=== PATIENT | female | born 1960 | race Caucasian/White ===

== ENCOUNTER 2019-11-08 11:30 | Inpatient (IN) | payer MEDICARE, OTHER ==
[2019-11-08 12:09] VITALS: BP 114/70
[2019-11-08] MEDS ORDERED: Maalox 30 mL Cup PO PRN (12:09)
[2019-11-08] MEDS ORDERED: Magnesium Hydroxide (MOM) 30 mL UDC PO PRN (12:09)
[2019-11-08] MEDS ORDERED: Dicyclomine 10 mg Cap PO PRN (12:40)
[2019-11-08] MEDS: Sulfamethoxazole/TMP 800/160mg Tab PO SCH (16:18)
--- NOTE | 2019-11-08 23:25 | Consultation ---
DATE OF CONSULTATION: 11/08/2019 INTERNAL MEDICINE CONSULTATION REASON FOR CONSULTATION: Medical management and clearance of the patient admitted on 515. HISTORY OF PRESENT ILLNESS: This is a 59-year-old female with history of COPD, arthritis, migraine headache, admitted from facility in [place]. The patient was cleared medically from [facility]. The patient also diagnosed with UTI. The patient denies any fever, shortness of breath, or chest pain at this time. PAST MEDICAL HISTORY: As mentioned in history of present illness. PAST SURGICAL HISTORY: The patient related multiple surgeries including brain surgery as a child, nasal surgery and right knee surgery. ALLERGIES: MORPHINE AND PROCHLORPERAZINE. MEDICATIONS: Aripiprazole, clonazepam, ibuprofen, lorazepam, multivitamin, Ambien, [place], and Imitrex. FAMILY HISTORY: Noncontributory. SOCIAL HISTORY: The patient is an avid smoker, half a pack to a pack. 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 She states that she does not have any children. REVIEW OF SYSTEMS: GENERAL: Complains of not feeling well. HEENT: No blurred vision or pain. LUNGS: No diagnosis of asthma. The patient with COPD. The patient is a chronic smoker. HEART: Denies hypertension or coronary artery disease. ABDOMEN: No nausea, vomiting, or pain. GENITOURINARY: The patient with increased frequency. NEUROLOGIC: No headaches, seizure, or syncope. PSYCHIATRIC: As stated above. PHYSICAL EXAMINATION: VITAL SIGNS: Blood pressure 114/70, respiration 18, pulse 80, and temperature 98.6. GENERAL: Disheveled female, mildly obese, appears older than stated age. NECK: Supple. No mass. LUNGS: Equal breath sounds, otherwise clear to auscultation. HEART: Regular rate and rhythm without appreciable murmur. ABDOMEN: Soft, globular. Positive bowel sounds. GENITOURINARY: This was offered, but the patient refused. EXTREMITIES: Positive abrasion bilateral lower extremity. NEUROLOGIC: The patient is awake, somewhat alert, please refer to Dr. Mckinney's dictation for assessment. Cranial nerve 1, the patient is able to smell alcohol swab. Cranial nerve 2, able to read a printed page. Cranial nerve 3, able to move eyeballs upward and outward. Cranial nerve 4, able to move eyeballs inward and downward. Cranial nerve 5 able to clench teeth, has normal sensation on forehead. Cranial nerve 6, able to move eyes laterally on both sides. Cranial nerve 7, able to move eyebrows upward on both sides. Cranial nerve 8, able to hear finger rubs on both sides. Cranial nerve 9, this was offered, but the patient refused. Cranial nerve 10, this was offered, but the patient refused. Cranial nerve 11, this was offered, but the patient refused. Cranial nerve 12, this was offered, but the patient refused. Motor and sensory are equal. Gait is not seen. LABORATORY DATA: UA showed 4+ bacteria, 15 wbc's. Sodium 139, potassium 3.7, BUN 21, creatinine 0.6, AST and ALT 17 and 15. WBC 6, hemoglobin 12, platelets 243. ASSESSMENT AND PLAN: Urinary tract infection, chronic obstructive pulmonary disease, osteoarthritis, degenerative joint disease, migraine headache, renal insufficiency, mild anemia, and obesity. We will start the patient on p.o. antibiotic for a short duration. Continue on bronchodilator treatment on as needed basis. Continue with adequate pain control as well as Imitrex for headaches. We will monitor hemoglobin and hematocrit. The patient to be placed on fall precaution. Psychiatry to manage the patient for psych issues. The patient to follow up with her regular physician upon discharge. [facility]# [id number]
[2019-11-09] MEDS: Multivitamin Tab PO SCH (08:26)
[2019-11-09] MEDS: Sulfamethoxazole/TMP 800/160mg Tab PO SCH ×2 (08:26→16:40)
--- NOTE | 2019-11-09 12:55 | Internal Medicine Prog Note ---
Internal Medicine Subjective - Subjective Patient seen and examined:: with staff, chart reviewed Patient is:: awake, verbal, interactive, in bed Per staff patient has:: no adverse event, no episodes of fall, tolerating meds Internal Medicine Objective - Physical Exam Vitals and I&O: Vital Signs Temp 97.9 F 11/09/19 06:04 Pulse 91 11/09/19 06:04 Resp 20 11/09/19 06:04 BP 104/74 11/09/19 06:04 Pulse Ox 95 11/09/19 06:04 Intake & Output 11/08/19 11/09/19 11/09/19 18:59 06:59 18:59 Intake Total 650 300 Balance 650 300 Weight (lbs) 78.925 kg Intake: Oral 650 300 Other: # Voids 1 # Bowel Movements 3 0 Weight Source Estimated Active Medications: Current Medications Acetaminophen (Tylenol) 650 mg PO Q4H PRN PRN Reason: Pain (Mild 1-3) Stop: 01/07/20 12:08 Hydrocodone Bitart/Acetaminophen ([place] 5mg/325mg) 1 tab PO Q6H PRN PRN Reason: Pain (Severe 7-10) Stop: 01/07/20 12:46 Al Hydrox/Mg Hydrox/Simethicone (Maalox) 30 ml PO Q4HR PRN PRN Reason: GI DISTRESS Stop: 01/07/20 12:08 Aripiprazole (Abilify) 10 mg PO DAILY [facility]; Protocol Stop: 01/08/20 08:59 Last Admin: 11/09/19 08:26 Dose: 10 mg Aspirin (Ecotrin) 81 mg PO DAILY [facility] Stop: 01/08/20 08:59 Last Admin: 11/09/19 08:26 Dose: 81 mg Baclofen (Lioresal) 10 mg PO TID PRN PRN Reason: Pain (Moderate 4-6) Stop: 01/07/20 13:59 Last Admin: 11/08/19 22:37 Dose: 10 mg Clonazepam (Klonopin) 1 mg PO BID PRN; Protocol PRN Reason: Agitation Stop: 01/07/20 16:59 Dicyclomine HCl (Bentyl) 20 mg PO TID PRN PRN Reason: Indigestion Stop: 11/12/19 12:39 Divalproex Sodium (Depakote Dr) 500 mg PO BID [facility]; Protocol Stop: 01/07/20 16:59 Last Admin: 11/09/19 08:26 Dose: 500 mg Gabapentin (Neurontin) 300 mg PO BID [facility] Stop: 01/07/20 16:59 Last Admin: 11/09/19 08:26 Dose: 300 mg Ibuprofen (Motrin) 400 mg PO Q4H PRN PRN Reason: Pain (Severe 7-10) Stop: 01/07/20 12:08 Loperamide HCl (Imodium) 2 mg PO Q4H PRN PRN Reason: Allergy Symptoms Stop: 11/13/19 16:00 Last Admin: 11/09/19 08:26 Dose: 2 mg Lorazepam (Ativan) 0.5 mg PO Q4HR PRN; Protocol PRN Reason: Anxiety Stop: 12/08/19 12:08 Last Admin: 11/09/19 08:26 Dose: 0.5 mg Magnesium Hydroxide (Milk Of Magnesia) 30 ml PO HS PRN PRN Reason: Constipation Mirtazapine (Remeron) 15 mg PO HS [facility]; Protocol Stop: 01/07/20 20:59 Last Admin: 11/08/19 21:19 Dose: 15 mg Multivitamins/Vitamin C (Theragran) 1 tab PO DAILY [facility] Stop: 01/08/20 08:59 Last Admin: 11/09/19 08:26 Dose: 1 tab Ondansetron HCl (Zofran Odt) 4 mg PO Q8H PRN PRN Reason: Nausea / Vomiting Stop: 11/12/19 12:51 Tramadol HCl (Ultram) 50 mg PO Q6HR PRN PRN Reason: Pain (Moderate 4-6) Stop: 11/11/19 12:56 Last Admin: 11/08/19 22:37 Dose: 50 mg Trazodone HCl (Desyrel) 150 mg PO HS [facility]; Protocol Stop: 01/07/20 20:59 Last Admin: 11/08/19 21:20 Dose: 150 mg Trimethoprim/Sulfamethoxazole (Bactrim Ds) 1 tab PO BID [facility] Stop: 11/13/19 16:59 Last Admin: 11/09/19 08:26 Dose: 1 tab Zolpidem Tartrate (Ambien) 5 mg PO HS PRN PRN Reason: Insomnia Stop: 01/07/20 12:08 General: obese, appears older HEENT: NC/AT, PERRLA Neck: Supple, No JVD, No thyromegaly Lungs: CTAB Cardiovascular: RRR, Normal S1, Normal S2, without murmur Abdomen: soft, non-tender, globular, positive bowel sound Extremities: excoriation Neurological: no change Internal Medicine Assmt/Plan - Assessment Assessment: ASSESSMENT AND PLAN: Urinary tract infection, chronic obstructive pulmonary disease, osteoarthritis, degenerative joint disease, migraine headache, renal insufficiency, mild anemia, and obesity. - Plan Plan: PLAN: We will start the patient on p.o. antibiotic for a short duration. Continue on bronchodilator treatment on as needed basis. Continue with adequate pain control as well as Imitrex for headaches. We will monitor hemoglobin and hematocrit. The patient to be placed on fall precaution. Psychiatry to manage the patient for psych issues.
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
[2019-11-10] MEDS: Sulfamethoxazole/TMP 800/160mg Tab PO SCH ×2 (08:49→17:31)
[2019-11-10] MEDS: Multivitamin Tab PO SCH (08:49)
--- NOTE | 2019-11-10 12:33 | Internal Medicine Prog Note ---
Internal Medicine Subjective - Subjective Patient seen and examined:: with staff, chart reviewed Patient is:: awake, verbal, interactive, in bed Per staff patient has:: no adverse event, no episodes of fall, tolerating meds Internal Medicine Objective - Physical Exam Vitals and I&O: Vital Signs Temp 0 F 11/10/19 05:52 Pulse 77 11/09/19 21:39 Resp 20 11/09/19 21:39 BP 115/72 11/09/19 21:39 Pulse Ox 96 11/09/19 21:39 Intake & Output 11/09/19 11/10/19 11/10/19 18:59 06:59 18:59 Intake Total 960 Balance 960 Intake: Oral 840 Other 120 Other: # Voids 3 3 # Bowel Movements 0 0 Active Medications: Current Medications Acetaminophen (Tylenol) 650 mg PO Q4H PRN PRN Reason: Pain (Mild 1-3) Stop: 01/07/20 12:08 Hydrocodone Bitart/Acetaminophen ([place] 5mg/325mg) 1 tab PO Q6H PRN PRN Reason: Pain (Severe 7-10) Stop: 01/07/20 12:46 Al Hydrox/Mg Hydrox/Simethicone (Maalox) 30 ml PO Q4HR PRN PRN Reason: GI DISTRESS Stop: 01/07/20 12:08 Aripiprazole (Abilify) 15 mg PO DAILY [facility]; Protocol Stop: 01/09/20 08:59 Last Admin: 11/10/19 08:49 Dose: 15 mg Aspirin (Ecotrin) 81 mg PO DAILY [facility] Stop: 01/08/20 08:59 Last Admin: 11/10/19 08:49 Dose: 81 mg Baclofen (Lioresal) 10 mg PO TID PRN PRN Reason: Pain (Moderate 4-6) Stop: 01/07/20 13:59 Last Admin: 11/08/19 22:37 Dose: 10 mg Clonazepam (Klonopin) 1 mg PO BID PR[facility]; Protocol PRN Reason: Agitation Stop: 01/07/20 16:59 Dicyclomine HCl (Bentyl) 20 mg PO TID PRN PRN Reason: Indigestion Stop: 11/12/19 12:39 Divalproex Sodium (Depakote Dr) 500 mg PO BID [facility]; Protocol Stop: 01/07/20 16:59 Last Admin: 11/10/19 08:49 Dose: 500 mg Gabapentin (Neurontin) 300 mg PO BID [facility] Stop: 01/07/20 16:59 Last Admin: 11/10/19 08:49 Dose: 300 mg Ibuprofen (Motrin) 400 mg PO Q4H PRN PRN Reason: Pain (Severe 7-10) Stop: 01/07/20 12:08 Loperamide HCl (Imodium) 2 mg PO Q4H PRN PRN Reason: Allergy Symptoms Stop: 11/13/19 16:00 Last Admin: 11/09/19 08:26 Dose: 2 mg Lorazepam (Ativan) 0.5 mg PO Q4HR PRN; Protocol PRN Reason: Anxiety Stop: 12/08/19 12:08 Last Admin: 11/09/19 08:26 Dose: 0.5 mg Magnesium Hydroxide (Milk Of Magnesia) 30 ml PO HS PRN PRN Reason: Constipation Mirtazapine (Remeron) 15 mg PO HS [facility]; Protocol Stop: 01/07/20 20:59 Last Admin: 11/09/19 21:45 Dose: Not Given Multivitamins/Vitamin C (Theragran) 1 tab PO DAILY [facility] Stop: 01/08/20 08:59 Last Admin: 11/10/19 08:49 Dose: 1 tab Ondansetron HCl (Zofran Odt) 4 mg PO Q8H PRN PRN Reason: Nausea / Vomiting Stop: 11/12/19 12:51 Tramadol HCl (Ultram) 50 mg PO Q6HR PRN PRN Reason: Pain (Moderate 4-6) Stop: 11/11/19 12:56 Last Admin: 11/08/19 22:37 Dose: 50 mg Trazodone HCl (Desyrel) 150 mg PO HS [facility]; Protocol Stop: 01/07/20 20:59 Last Admin: 11/09/19 21:45 Dose: Not Given Trimethoprim/Sulfamethoxazole (Bactrim Ds) 1 tab PO BID [facility] Stop: 11/13/19 16:59 Last Admin: 11/10/19 08:49 Dose: 1 tab Zolpidem Tartrate (Ambien) 5 mg PO HS PRN PRN Reason: Insomnia Stop: 01/07/20 12:08 General: obese, appears older HEENT: NC/AT, PERRLA Neck: Supple, No JVD, No thyromegaly Lungs: CTAB Cardiovascular: RRR, Normal S1, Normal S2, without murmur Abdomen: soft, non-tender, globular, positive bowel sound Extremities: excoriation Neurological: no change Internal Medicine Assmt/Plan - Assessment Assessment: ASSESSMENT AND PLAN: Urinary tract infection, chronic obstructive pulmonary disease, osteoarthritis, degenerative joint disease, migraine headache, renal insufficiency, mild anemia, and obesity. - Plan Plan: PLAN: We will start the patient on p.o. antibiotic for a short duration. Continue on bronchodilator treatment on as needed basis. Continue with adequate pain control as well as Imitrex for headaches. We will monitor hemoglobin and hematocrit. The patient to be placed on fall precaution. Psychiatry to manage the patient for psych issues.
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
[2019-11-11] MEDS: Multivitamin Tab PO SCH (08:42)
[2019-11-11] MEDS: Sulfamethoxazole/TMP 800/160mg Tab PO SCH ×2 (08:42→16:34)
--- NOTE | 2019-11-11 12:56 | Internal Medicine Prog Note ---
Internal Medicine Subjective - Subjective Patient seen and examined:: with staff, chart reviewed Patient is:: awake, verbal, interactive, in bed Per staff patient has:: no adverse event, no episodes of fall, tolerating meds Internal Medicine Objective - Physical Exam Vitals and I&O: Vital Signs Temp 97.6 F 11/11/19 05:28 Pulse 97 11/11/19 05:28 Resp 18 11/11/19 05:28 BP 120/79 11/11/19 05:28 Pulse Ox 99 11/11/19 05:28 Intake & Output 11/10/19 11/11/19 11/11/19 18:59 06:59 18:59 Intake Total 120 Balance 120 Intake: Oral 120 Other: # Voids 2 3 # Bowel Movements 0 0 Active Medications: Current Medications Acetaminophen (Tylenol) 650 mg PO Q4H PRN PRN Reason: Pain (Mild 1-3) Stop: 01/07/20 12:08 Hydrocodone Bitart/Acetaminophen ([place] 5mg/325mg) 1 tab PO Q6H PRN PRN Reason: Pain (Severe 7-10) Stop: 01/07/20 12:46 Al Hydrox/Mg Hydrox/Simethicone (Maalox) 30 ml PO Q4HR PRN PRN Reason: GI DISTRESS Stop: 01/07/20 12:08 Aripiprazole (Abilify) 15 mg PO DAILY [facility]; Protocol Stop: 01/09/20 08:59 Last Admin: 11/11/19 08:42 Dose: 15 mg Aspirin (Ecotrin) 81 mg PO DAILY [facility] Stop: 01/08/20 08:59 Last Admin: 11/11/19 08:42 Dose: 81 mg Baclofen (Lioresal) 10 mg PO TID PRN PRN Reason: Pain (Moderate 4-6) Stop: 01/07/20 13:59 Last Admin: 11/08/19 22:37 Dose: 10 mg Clonazepam (Klonopin) 1 mg PO BID [facility]; Protocol PRN Reason: Agitation Stop: 01/07/20 16:59 Dicyclomine HCl (Bentyl) 20 mg PO TID PRN PRN Reason: Indigestion Stop: 11/12/19 12:39 Divalproex Sodium (Depakote Dr) 500 mg PO BID [facility]; Protocol Stop: 01/07/20 16:59 Last Admin: 04/15/20 08:42 Dose: 500 mg Gabapentin (Neurontin) 300 mg PO BID [facility] Stop: 01/07/20 16:59 Last Admin: 11/11/19 08:42 Dose: 300 mg Ibuprofen (Motrin) 400 mg PO Q4H PRN PRN Reason: Pain (Severe 7-10) Stop: 01/07/20 12:08 Loperamide HCl (Imodium) 2 mg PO Q4H PRN PRN Reason: Allergy Symptoms Stop: 11/13/19 16:00 Last Admin: 11/09/19 08:26 Dose: 2 mg Lorazepam (Ativan) 0.5 mg PO Q4HR PRN; Protocol PRN Reason: Anxiety Stop: 12/08/19 12:08 Last Admin: 11/09/19 08:26 Dose: 0.5 mg Magnesium Hydroxide (Milk Of Magnesia) 30 ml PO HS PRN PRN Reason: Constipation Mirtazapine (Remeron) 15 mg PO HS [facility]; Protocol Stop: 01/07/20 20:59 Last Admin: 11/10/19 20:54 Dose: 15 mg Multivitamins/Vitamin C (Theragran) 1 tab PO DAILY [facility] Stop: 01/08/20 08:59 Last Admin: 11/11/19 08:42 Dose: 1 tab Ondansetron HCl (Zofran Odt) 4 mg PO Q8H PRN PRN Reason: Nausea / Vomiting Stop: 11/12/19 12:51 Tramadol HCl (Ultram) 50 mg PO Q6HR PRN PRN Reason: Pain (Moderate 4-6) Stop: 11/11/19 12:56 Last Admin: 11/08/19 22:37 Dose: 50 mg Trazodone HCl (Desyrel) 150 mg PO HS [facility]; Protocol Stop: 01/07/20 20:59 Last Admin: 11/10/19 20:54 Dose: 150 mg Trimethoprim/Sulfamethoxazole (Bactrim Ds) 1 tab PO BID [facility] Stop: 11/13/19 16:59 Last Admin: 11/11/19 08:42 Dose: 1 tab Zolpidem Tartrate (Ambien) 5 mg PO HS PRN PRN Reason: Insomnia Stop: 01/07/20 12:08 General: obese, appears older HEENT: NC/AT, PERRLA Neck: Supple, No JVD, No thyromegaly Lungs: CTAB Cardiovascular: RRR, Normal S1, Normal S2, without murmur Abdomen: soft, non-tender, globular, positive bowel sound Extremities: excoriation Neurological: no change Internal Medicine Assmt/Plan - Assessment Assessment: ASSESSMENT AND PLAN: Urinary tract infection, chronic obstructive pulmonary disease, osteoarthritis, degenerative joint disease, migraine headache, renal insufficiency, mild anemia, and obesity. - Plan Plan: PLAN: We will start the patient on p.o. antibiotic for a short duration. Continue on bronchodilator treatment on as needed basis. Continue with adequate pain control as well as Imitrex for headaches. We will monitor hemoglobin and hematocrit. The patient to be placed on fall precaution. Psychiatry to manage the patient for psych issues.
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
[2019-11-12] MEDS: Multivitamin Tab PO SCH (08:21)
[2019-11-12] MEDS: Sulfamethoxazole/TMP 800/160mg Tab PO SCH ×2 (08:21→17:06)
--- NOTE | 2019-11-12 13:05 | Progress Notes ---
DATE: 11/12/2019 SUBJECTIVE: A 59-year-old female, slept for about 8 hours, selectively mute, withdrawn, depressed, still believing she is , not telling me her age. The patient was apparently off of medications, still believes that she has a mansion, millions of dollars, [place] nodding when I ask her these questions, nodding yes when I ask if she is . Medications were reviewed. Labs were reviewed. Vitals were reviewed. Blood pressure 112/67, pulse of 81. Evaluated for any medication side effects, none noted at this time. No EPS, no akathisia, no oversedation. MENTAL STATUS EXAMINATION: Stated age, staring blankly, depressed appearing down still grandiose. DIAGNOSIS: Concerns for schizophrenia. PLAN: We will continue inpatient monitoring. We will continue to adjust and titrate medications. I will be increasing her dosing of Abilify slowly. [facility]# [id number]
--- NOTE | 2019-11-12 13:07 | Internal Medicine Prog Note ---
Internal Medicine Subjective - Subjective Patient seen and examined:: with staff, chart reviewed Patient is:: awake, verbal, interactive, in bed Per staff patient has:: no adverse event, no episodes of fall, tolerating meds Internal Medicine Objective - Physical Exam Vitals and I&O: Vital Signs Temp 98.3 F 11/12/19 06:04 Pulse 66 11/12/19 06:04 Resp 17 11/12/19 08:00 BP 122/82 11/12/19 06:04 Pulse Ox 96 11/12/19 06:04 Intake & Output 11/11/19 11/12/19 11/12/19 18:59 06:59 18:59 Intake Total 800 240 Balance 800 240 Intake: Oral 800 240 Other: # Voids 3 2 # Bowel Movements 0 0 Active Medications: Current Medications Acetaminophen (Tylenol) 650 mg PO Q4H PRN PRN Reason: Pain (Mild 1-3) Stop: 01/07/20 12:08 Hydrocodone Bitart/Acetaminophen ([place] 5mg/325mg) 1 tab PO Q6H PRN PRN Reason: Pain (Severe 7-10) Stop: 01/07/20 12:46 Al Hydrox/Mg Hydrox/Simethicone (Maalox) 30 ml PO Q4HR PRN PRN Reason: GI DISTRESS Stop: 01/07/20 12:08 Aripiprazole (Abilify) 15 mg PO DAILY [facility]; Protocol Stop: 01/09/20 08:59 Last Admin: 11/12/19 08:21 Dose: 15 mg Aspirin (Ecotrin) 81 mg PO DAILY [facility] Stop: 01/08/20 08:59 Last Admin: 11/12/19 08:21 Dose: 81 mg Baclofen (Lioresal) 10 mg PO TID PRN PRN Reason: Pain (Moderate 4-6) Stop: 01/07/20 13:59 Last Admin: 11/08/19 22:37 Dose: 10 mg Clonazepam (Klonopin) 1 mg PO BID PRN; Protocol PRN Reason: Agitation Stop: 01/07/20 16:59 Divalproex Sodium (Depakote Dr) 500 mg PO BID [facility]; Protocol Stop: 01/07/20 16:59 Last Admin: 11/12/19 08:21 Dose: 500 mg Gabapentin (Neurontin) 300 mg PO BID [facility] Stop: 01/07/20 16:59 Last Admin: 11/12/19 08:21 Dose: 300 mg Ibuprofen (Motrin) 400 mg PO Q4H PRN PRN Reason: Pain (Severe 7-10) Stop: 01/07/20 12:08 Loperamide HCl (Imodium) 2 mg PO Q4H PRN PRN Reason: Allergy Symptoms Stop: 11/13/19 16:00 Last Admin: 11/09/19 08:26 Dose: 2 mg Lorazepam (Ativan) 0.5 mg PO Q4HR PRN; Protocol PRN Reason: Anxiety Stop: 12/08/19 12:08 Last Admin: 11/09/19 08:26 Dose: 0.5 mg Magnesium Hydroxide (Milk Of Magnesia) 30 ml PO HS PRN PRN Reason: Constipation Mirtazapine (Remeron) 15 mg PO HS [facility]; Protocol Stop: 01/07/20 20:59 Last Admin: 11/10/19 20:54 Dose: 15 mg Multivitamins/Vitamin C (Theragran) 1 tab PO DAILY [facility] Stop: 01/08/20 08:59 Last Admin: 11/12/19 08:21 Dose: 1 tab Trazodone HCl (Desyrel) 150 mg PO HS [facility]; Protocol Stop: 01/07/20 20:59 Last Admin: 11/10/19 20:54 Dose: 150 mg Trimethoprim/Sulfamethoxazole (Bactrim Ds) 1 tab PO BID [facility] Stop: 11/13/19 16:59 Last Admin: 11/12/19 08:21 Dose: 1 tab Zolpidem Tartrate (Ambien) 5 mg PO HS PRN PRN Reason: Insomnia Stop: 01/07/20 12:08 General: obese, appears older HEENT: NC/AT, PERRLA Neck: Supple, No JVD, No thyromegaly Lungs: CTAB Cardiovascular: RRR, Normal S1, Normal S2, without murmur Abdomen: soft, non-tender, globular, positive bowel sound Extremities: excoriation Neurological: no change Internal Medicine Assmt/Plan - Assessment Assessment: ASSESSMENT AND PLAN: Urinary tract infection, chronic obstructive pulmonary disease, osteoarthritis, degenerative joint disease, migraine headache, renal insufficiency, mild anemia, and obesity. - Plan Plan: PLAN: We will start the patient on p.o. antibiotic for a short duration. Continue on bronchodilator treatment on as needed basis. Continue with adequate pain control as well as Imitrex for headaches. We will monitor hemoglobin and hematocrit. The patient to be placed on fall precaution. Psychiatry to manage the patient for psych issues.
[2019-11-13] MEDS: Multivitamin Tab PO SCH (09:06)
[2019-11-13] MEDS: Sulfamethoxazole/TMP 800/160mg Tab PO SCH (09:06)
--- NOTE | 2019-11-13 13:09 | Internal Medicine Prog Note ---
Internal Medicine Subjective - Subjective Patient seen and examined:: with staff, chart reviewed Patient is:: awake, verbal, interactive, in bed Per staff patient has:: no adverse event, no episodes of fall, tolerating meds Internal Medicine Objective - Physical Exam Vitals and I&O: Vital Signs Temp 98.6 F 11/13/19 05:54 Pulse 75 11/13/19 05:54 Resp 17 11/13/19 08:00 BP 110/61 11/13/19 05:54 Pulse Ox 98 11/13/19 05:54 Intake & Output 11/12/19 11/13/19 11/13/19 18:59 06:59 18:59 Intake Total 660 240 Balance 660 240 Intake: Oral 660 240 Other: # Voids 3 2 # Bowel Movements 0 0 Active Medications: Current Medications Acetaminophen (Tylenol) 650 mg PO Q4H PRN PRN Reason: Pain (Mild 1-3) Stop: 01/07/20 12:08 Hydrocodone Bitart/Acetaminophen ([place] 5mg/325mg) 1 tab PO Q6H PRN PRN Reason: Pain (Severe 7-10) Stop: 01/07/20 12:46 Al Hydrox/Mg Hydrox/Simethicone (Maalox) 30 ml PO Q4HR PRN PRN Reason: GI DISTRESS Stop: 01/07/20 12:08 Aripiprazole (Abilify) 15 mg PO DAILY [facility]; Protocol Stop: 01/09/20 08:59 Last Admin: 11/13/19 09:06 Dose: 15 mg Aspirin (Ecotrin) 81 mg PO DAILY [facility] Stop: 01/08/20 08:59 Last Admin: 11/13/19 09:06 Dose: 81 mg Baclofen (Lioresal) 10 mg PO TID PRN PRN Reason: Pain (Moderate 4-6) Stop: 01/07/20 13:59 Last Admin: 11/08/19 22:37 Dose: 10 mg Clonazepam (Klonopin) 1 mg PO BID PRN; Protocol PRN Reason: Agitation Stop: 01/07/20 16:59 Divalproex Sodium (Depakote Dr) 500 mg PO BID [facility]; Protocol Stop: 01/07/20 16:59 Last Admin: 11/13/19 09:06 Dose: 500 mg Gabapentin (Neurontin) 300 mg PO BID [facility] Stop: 01/07/20 16:59 Last Admin: 11/13/19 09:06 Dose: 300 mg Ibuprofen (Motrin) 400 mg PO Q4H PRN PRN Reason: Pain (Severe 7-10) Stop: 01/07/20 12:08 Loperamide HCl (Imodium) 2 mg PO Q4H PRN PRN Reason: Allergy Symptoms Stop: 11/13/19 16:00 Last Admin: 11/09/19 08:26 Dose: 2 mg Lorazepam (Ativan) 0.5 mg PO Q4HR PRN; Protocol PRN Reason: Anxiety Stop: 12/08/19 12:08 Last Admin: 11/09/19 08:26 Dose: 0.5 mg Magnesium Hydroxide (Milk Of Magnesia) 30 ml PO HS PRN PRN Reason: Constipation Mirtazapine (Remeron) 15 mg PO HS [facility]; Protocol Stop: 01/07/20 20:59 Last Admin: 11/12/19 21:45 Dose: 15 mg Multivitamins/Vitamin C (Theragran) 1 tab PO DAILY [facility] Stop: 01/08/20 08:59 Last Admin: 11/13/19 09:06 Dose: 1 tab Trazodone HCl (Desyrel) 150 mg PO HS [facility]; Protocol Stop: 01/07/20 20:59 Last Admin: 11/12/19 21:45 Dose: 150 mg Trimethoprim/Sulfamethoxazole (Bactrim Ds) 1 tab PO BID [facility] Stop: 11/13/19 16:59 Last Admin: 11/13/19 09:06 Dose: 1 tab Zolpidem Tartrate (Ambien) 5 mg PO HS PRN PRN Reason: Insomnia Stop: 01/07/20 12:08 General: obese, appears older HEENT: NC/AT, PERRLA Neck: Supple, No JVD, No thyromegaly Lungs: CTAB Cardiovascular: RRR, Normal S1, Normal S2, without murmur Abdomen: soft, non-tender, globular, positive bowel sound Extremities: excoriation Neurological: no change Internal Medicine Assmt/Plan - Assessment Assessment: ASSESSMENT AND PLAN: Urinary tract infection, chronic obstructive pulmonary disease, osteoarthritis, degenerative joint disease, migraine headache, renal insufficiency, mild anemia, and obesity. - Plan Plan: PLAN: We will start the patient on p.o. antibiotic for a short duration. Continue on bronchodilator treatment on as needed basis. Continue with adequate pain control as well as Imitrex for headaches. We will monitor hemoglobin and hematocrit. The patient to be placed on fall precaution. Psychiatry to manage the patient for psych issues. Nutritional Asmnt/Malnutr-PDOC - Dietary Evaluation Malnutrition Findings (Please click <Entered> for more info): Nutritional Asmnt/Malnutrition Start: 11/12/19 16: 37 Text: Status: Complete Freq: Protocol: Document 11/12/19 16:38 GORDON (Rec: 11/12/19 16:40 GORDON [id number]) Nutritional Asmnt/Malnutrition Patient General Information Nutritional Screening Moderate Risk Diagnosis Psychosis Pertinent Medical Hx/Surgical Hx COPD, Arthritis, Migraine Headaches Subjective Information Pt is a 57-year-old male admitted on 07/19 d/t psychosis with grandiosities. Pt is eating an estimated 56% of meals since admit date (x3 days) Per Meal/Nutrition Activity Record. Pt has noted refusal of some meals, nurse stated pt refused breakfast this morning and seems very depressed. Dietary is currently providing an estimated 1700 kcals and 100 gm Pro, per Pt PO intake this is providing an estimated 950 kcals and 56gm Pro to meet 86 % kcal and 100+% Pro needs- adequate. Visited pt today, asked how her appetite was .Pt would not speak, only nodded no when I asked if she was hungry and if I could get her something to eat. Will continue to monitor PO intake. Anthropometrics HT: 5 FT WT: 174 LB (79.09 kg) ABW: 119 LB (53.86 kg) BMI: 34.02 (Obese) GI/ Skin Integrity GI: WNL, Soft, Non-tender BM: 11/07 x3 I/O: 1040/Not Noted Skin: WNL, Intact Demetrio: 20 Diet Order: Cardiac, Chopped Estimated Energy Needs: ( Geriatric, ABW) 6712-1244 kcals (20-25 kcals/ kg) 40-55g Pro (0.8-1.0 g/kg) 9016-0228 ml (20-25 ml/kg) Current Diet Order/ Nutrition Support Cardiac, Chopped Pertinent Medications Maalox (PRN), Imodium (PRN), MOM (PRN), Theragran Pertinent Labs 4/11: Glucose 106, BUN/Cr 21/0 .67, Pro Time 12.4, INR 1.1 Nutritional Hx/Data Height 1.52 m Height (Calculated Centimeters) 152.4 Current Weight (lbs) 78.925 kg Weight (Calculated Kilograms) 78.9 Weight (Calculated Grams) 79585.1 [place] Body Weight 100 LB (45.45 kg) % [place] Body Weight 174 Body Mass Index (BMI) 34.0 Weight Status Obese GI Symptoms Last BM 11/07 x3 Skin Integrity/Comment: Skin: WNL, Intact Demetrio: 20 Estimated Nutritional Goals BEE in Kcals: Adj wt of IBW Calories/Kcals/Kg 20-25 Kcals Calculated 4373-8675 Protein: Adj wt of IBW Protein g/k.8-1.0 Protein Calculated 40-55 Fluid: ml 7407-8310 ml (20-25 ml/kg) Nutritional Problem 1. Problem Problem Obesity Etiology r/t consistent energy overconsumption Signs/Symptoms: aeb BMI <30 (34.02). Malnutrition Related to Morbid Obesity Malnutrition related to morbid obesity No Intervention/Recommendation Comments Continue Cardiac, Chopped diet as tolerated. Expected Outcomes/Goals Expected Outcomes/Goals 1.PO intake meet 75% of estimated nutritional needs. 2.Monitor PO intake, wt, nutrition related labs, and skin integrity. 3.F/U as moderate risk in 3-5 days, 11/14-11/16.
--- NOTE | 2019-11-13 14:56 | Progress Notes ---
DATE: 11/13/2019 SUBJECTIVE: A 59-year-old female, currently in the hospital unkempt, mostly withdrawn, keeps to self, ongoing delusions, still stating that she is , that she has multiple mansions, a lot of money, very depressed appearing, ongoing melancholy, psychotic symptoms. I cannot convince her that she is not given her age of 59. Poor reality testing, unrealistic expectations about her discharge plan, stating that she is going to go live in mansions. Nursing notes are reviewed. Medications were reviewed. Labs were reviewed. Vitals were reviewed, discussed with nursing staff, no medication side effects noted. MENTAL STATUS EXAMINATION: Stated age. Fair eye contact. Mood "okay." Affect flat. Thought processes were tangential. Ongoing delusions, perceptual disturbances. Diagnosis of bipolar versus schizophrenia. PLAN: We will continue to monitor incrementally, increase her dosing of antipsychotic medications. Ongoing symptoms, severe psychotic symptoms. [facility]# [id number]
[2019-11-14] MEDS: Multivitamin Tab PO SCH (10:06)
--- NOTE | 2019-11-14 11:16 | Internal Medicine Prog Note ---
Internal Medicine Subjective - Subjective Patient seen and examined:: with staff, chart reviewed Patient is:: awake, verbal, interactive, in bed Per staff patient has:: no adverse event, no episodes of fall, tolerating meds Internal Medicine Objective - Physical Exam Vitals and I&O: Vital Signs Temp 97.3 F 11/13/19 16:27 Pulse 74 11/13/19 16:27 Resp 17 11/14/19 08:00 BP 95/63 11/13/19 16:27 Pulse Ox 95 11/13/19 16:27 Intake & Output 11/13/19 11/14/19 11/14/19 18:59 06:59 18:59 Intake Total 360 Balance 360 Intake: Oral 360 Other: # Voids 2 # Bowel Movements 0 Active Medications: Current Medications Acetaminophen (Tylenol) 650 mg PO Q4H PRN PRN Reason: Pain (Mild 1-3) Stop: 01/07/20 12:08 Hydrocodone Bitart/Acetaminophen ([place] 5mg/325mg) 1 tab PO Q6H PRN PRN Reason: Pain (Severe 7-10) Stop: 01/07/20 12:46 Al Hydrox/Mg Hydrox/Simethicone (Maalox) 30 ml PO Q4HR PRN PRN Reason: GI DISTRESS Stop: 01/07/20 12:08 Aripiprazole (Abilify) 15 mg PO DAILY [facility]; Protocol Stop: 01/09/20 08:59 Last Admin: 11/14/19 10:05 Dose: 15 mg Aspirin (Ecotrin) 81 mg PO DAILY [facility] Stop: 01/08/20 08:59 Last Admin: 11/14/19 10:05 Dose: 81 mg Baclofen (Lioresal) 10 mg PO TID PRN PRN Reason: Pain (Moderate 4-6) Stop: 01/07/20 13:59 Last Admin: 11/08/19 22:37 Dose: 10 mg Clonazepam (Klonopin) 1 mg PO BID PRN; Protocol PRN Reason: Agitation Stop: 01/07/20 16:59 Divalproex Sodium (Depakote Dr) 500 mg PO BID [facility]; Protocol Stop: 01/07/20 16:59 Last Admin: 11/14/19 10:05 Dose: 500 mg Gabapentin (Neurontin) 300 mg PO BID [facility] Stop: 01/07/20 16:59 Last Admin: 04/18/20 10:05 Dose: 300 mg Ibuprofen (Motrin) 400 mg PO Q4H PRN PRN Reason: Pain (Severe 7-10) Stop: 01/07/20 12:08 Lorazepam (Ativan) 0.5 mg PO Q4HR PRN; Protocol PRN Reason: Anxiety Stop: 12/08/19 12:08 Last Admin: 11/09/19 08:26 Dose: 0.5 mg Magnesium Hydroxide (Milk Of Magnesia) 30 ml PO HS PRN PRN Reason: Constipation Mirtazapine (Remeron) 15 mg PO HS [facility]; Protocol Stop: 01/07/20 20:59 Last Admin: 11/13/19 20:45 Dose: 15 mg Multivitamins/Vitamin C (Theragran) 1 tab PO DAILY [facility] Stop: 01/08/20 08:59 Last Admin: 11/14/19 10:06 Dose: 1 tab Trazodone HCl (Desyrel) 150 mg PO HS [facility]; Protocol Stop: 01/07/20 20:59 Last Admin: 11/13/19 20:45 Dose: 150 mg Zolpidem Tartrate (Ambien) 5 mg PO HS PRN PRN Reason: Insomnia Stop: 01/07/20 12:08 General: obese, appears older HEENT: NC/AT, PERRLA Neck: Supple, No JVD, No thyromegaly Lungs: CTAB Cardiovascular: RRR, Normal S1, Normal S2, without murmur Abdomen: soft, non-tender, globular, positive bowel sound Extremities: excoriation Neurological: no change Internal Medicine Assmt/Plan - Assessment Assessment: ASSESSMENT AND PLAN: Urinary tract infection, chronic obstructive pulmonary disease, osteoarthritis, degenerative joint disease, migraine headache, renal insufficiency, mild anemia, and obesity. - Plan Plan: PLAN: We will start the patient on p.o. antibiotic for a short duration. Continue on bronchodilator treatment on as needed basis. Continue with adequate pain control as well as Imitrex for headaches. We will monitor hemoglobin and hematocrit. The patient to be placed on fall precaution. Psychiatry to manage the patient for psych issues. Nutritional Asmnt/Malnutr-PDOC - Dietary Evaluation Malnutrition Findings (Please click <Entered> for more info): Nutritional Asmnt/Malnutrition Start: 11/12/19 16: 37 Text: Status: Complete Freq: Protocol: Document 11/12/19 16:38 GORDON (Rec: 11/12/19 16:40 GORDON [email or web address] [id number]) Nutritional Asmnt/Malnutrition Patient General Information Nutritional Screening Moderate Risk Diagnosis Psychosis Pertinent Medical Hx/Surgical Hx COPD, Arthritis, Migraine Headaches Subjective Information Pt is a 57-year-old male admitted on 07/19 d/t psychosis with grandiosities. Pt is eating an estimated 56% of meals since admit date (x3 days) Per Meal/Nutrition Activity Record. Pt has noted refusal of some meals, nurse stated pt refused breakfast this morning and seems very depressed. Dietary is currently providing an estimated 1700 kcals and 100 gm Pro, per Pt PO intake this is providing an estimated 950 kcals and 56gm Pro to meet 86 % kcal and 100+% Pro needs- adequate. Visited pt today, asked how her appetite was .Pt would not speak, only nodded no when I asked if she was hungry and if I could get her something to eat. Will continue to monitor PO intake. Anthropometrics HT: 5 FT WT: 174 LB (79.09 kg) ABW: 119 LB (53.86 kg) BMI: 34.02 (Obese) GI/ Skin Integrity GI: WNL, Soft, Non-tender BM: 11/07 x3 I/O: 1040/Not Noted Skin: WNL, Intact Demetrio: 20 Diet Order: Cardiac, Chopped Estimated Energy Needs: ( Geriatric, ABW) 5415-5171 kcals (20-25 kcals/ kg) 40-55g Pro (0.8-1.0 g/kg) 6917-8917 ml (20-25 ml/kg) Current Diet Order/ Nutrition Support Cardiac, Chopped Pertinent Medications Maalox (PRN), Imodium (PRN), MOM (PRN), Theragran Pertinent Labs 11/06: Glucose 106, BUN/Cr 21/0 .67, Pro Time 12.4, INR 1.1 Nutritional Hx/Data Height 1.52 m Height (Calculated Centimeters) 152.4 Current Weight (lbs) 78.925 kg Weight (Calculated Kilograms) 78.9 Weight (Calculated Grams) 61277.1 [place] Body Weight 100 LB (45.45 kg) % [place] Body Weight 174 Body Mass Index (BMI) 34.0 Weight Status Obese GI Symptoms Last BM 11/07 x3 Skin Integrity/Comment: Skin: WNL, Intact Demetrio: 20 Estimated Nutritional Goals BEE in Kcals: Adj wt of IBW Calories/Kcals/Kg 20-25 Kcals Calculated 0854-8749 Protein: Adj wt of IBW Protein g/k.8-1.0 Protein Calculated 40-55 Fluid: ml 7749-4338 ml (20-25 ml/kg) Nutritional Problem 1. Problem Problem Obesity Etiology r/t consistent energy overconsumption Signs/Symptoms: aeb BMI <30 (34.02). Malnutrition Related to Morbid Obesity Malnutrition related to morbid obesity No Intervention/Recommendation Comments Continue Cardiac, Chopped diet as tolerated. Expected Outcomes/Goals Expected Outcomes/Goals 1.PO intake meet 75% of estimated nutritional needs. 2.Monitor PO intake, wt, nutrition related labs, and skin integrity. 3.F/U as moderate risk in 3-5 days, 11/14-11/16.
--- NOTE | 2019-11-14 18:37 | Progress Notes ---
DATE: 11/14/2019 REASON FOR HOSPITALIZATION: Psychosis, grandiose and recent diagnosis of UTI. Medication reconciliation reviewed, Depakote, gabapentin, mirtazapine. SUBJECTIVE: Nursing staff reported the patient has been isolating, withdrawn. Today on [id number] evaluation, in her room bed with monotone, depressed, ongoing melancholic and internally preoccupied. ASSESSMENT AND PLAN: The patient with still ongoing symptoms and recent adjustments in medications. Continue to reach steady state. We will continue adjusting, monitoring, recent adjustments of __. JOB# [id number]
[2019-11-15] MEDS: Multivitamin Tab PO SCH (09:28)
--- NOTE | 2019-11-15 12:08 | Internal Medicine Prog Note ---
Internal Medicine Subjective - Subjective Patient seen and examined:: with staff, chart reviewed Patient is:: awake, verbal, interactive, in bed Per staff patient has:: no adverse event, no episodes of fall, tolerating meds Internal Medicine Objective - Physical Exam Vitals and I&O: Vital Signs Temp 97.3 F 11/15/19 06:19 Pulse 95 11/15/19 06:19 Resp 17 11/15/19 08:00 BP 106/72 11/15/19 06:19 Pulse Ox 96 11/15/19 06:19 Intake & Output 11/14/19 11/15/19 11/15/19 18:59 06:59 18:59 Intake Total 960 180 120 Balance 960 180 120 Intake: Oral 960 180 120 Other: # Voids 2 1 # Bowel Movements 0 0 Active Medications: Current Medications Acetaminophen (Tylenol) 650 mg PO Q4H PRN PRN Reason: Pain (Mild 1-3) Stop: 01/07/20 12:08 Hydrocodone Bitart/Acetaminophen ([place] 5mg/325mg) 1 tab PO Q6H PRN PRN Reason: Pain (Severe 7-10) Stop: 01/07/20 12:46 Al Hydrox/Mg Hydrox/Simethicone (Maalox) 30 ml PO Q4HR PRN PRN Reason: GI DISTRESS Stop: 01/07/20 12:08 Aripiprazole (Abilify) 15 mg PO DAILY [facility]; Protocol Stop: 01/09/20 08:59 Last Admin: 11/15/19 09:28 Dose: 15 mg Aspirin (Ecotrin) 81 mg PO DAILY [facility] Stop: 01/08/20 08:59 Last Admin: 11/15/19 09:28 Dose: 81 mg Baclofen (Lioresal) 10 mg PO TID PRN PRN Reason: Pain (Moderate 4-6) Stop: 01/07/20 13:59 Last Admin: 11/08/19 22:37 Dose: 10 mg Clonazepam (Klonopin) 1 mg PO BID [facility]; Protocol PRN Reason: Agitation Stop: 01/07/20 16:59 Divalproex Sodium (Depakote Dr) 500 mg PO BID [facility]; Protocol Stop: 01/07/20 16:59 Last Admin: 11/15/19 09:28 Dose: 500 mg Gabapentin (Neurontin) 300 mg PO BID [facility] Stop: 01/07/20 16:59 Last Admin: 11/15/19 09:28 Dose: 300 mg Ibuprofen (Motrin) 400 mg PO Q4H PRN PRN Reason: Pain (Severe 7-10) Stop: 01/07/20 12:08 Lorazepam (Ativan) 0.5 mg PO Q4HR PRN; Protocol PRN Reason: Anxiety Stop: 12/08/19 12:08 Last Admin: 11/09/19 08:26 Dose: 0.5 mg Magnesium Hydroxide (Milk Of Magnesia) 30 ml PO HS PRN PRN Reason: Constipation Mirtazapine (Remeron) 15 mg PO HS [facility]; Protocol Stop: 01/07/20 20:59 Last Admin: 11/14/19 21:02 Dose: 15 mg Multivitamins/Vitamin C (Theragran) 1 tab PO DAILY [facility] Stop: 01/08/20 08:59 Last Admin: 11/15/19 09:28 Dose: 1 tab Trazodone HCl (Desyrel) 150 mg PO HS [facility]; Protocol Stop: 01/07/20 20:59 Last Admin: 11/14/19 21:03 Dose: 150 mg Zolpidem Tartrate (Ambien) 5 mg PO HS PRN PRN Reason: Insomnia Stop: 01/07/20 12:08 General: obese, appears older HEENT: NC/AT, PERRLA Neck: Supple, No JVD, No thyromegaly Lungs: CTAB Cardiovascular: RRR, Normal S1, Normal S2, without murmur Abdomen: soft, non-tender, globular, positive bowel sound Extremities: excoriation Neurological: no change Internal Medicine Assmt/Plan - Assessment Assessment: ASSESSMENT AND PLAN: Urinary tract infection, chronic obstructive pulmonary disease, osteoarthritis, degenerative joint disease, migraine headache, renal insufficiency, mild anemia, and obesity. - Plan Plan: PLAN: We will start the patient on p.o. antibiotic for a short duration. Continue on bronchodilator treatment on as needed basis. Continue with adequate pain control as well as Imitrex for headaches. We will monitor hemoglobin and hematocrit. The patient to be placed on fall precaution. Psychiatry to manage the patient for psych issues. Nutritional Asmnt/Malnutr-PDOC - Dietary Evaluation Malnutrition Findings (Please click <Entered> for more info): Nutritional Asmnt/Malnutrition Start: 11/12/19 16: 37 Text: Status: Complete Freq: Protocol: Document 11/12/19 16:38 GORDON (Rec: 11/12/19 16:40 GORDON [email or web address] [id number]) Nutritional Asmnt/Malnutrition Patient General Information Nutritional Screening Moderate Risk Diagnosis Psychosis Pertinent Medical Hx/Surgical Hx COPD, Arthritis, Migraine Headaches Subjective Information Pt is a 57-year-old male admitted on 07/19 d/t psychosis with grandiosities. Pt is eating an estimated 56% of meals since admit date (x3 days) Per Meal/Nutrition Activity Record. Pt has noted refusal of some meals, nurse stated pt refused breakfast this morning and seems very depressed. Dietary is currently providing an estimated 1700 kcals and 100 gm Pro, per Pt PO intake this is providing an estimated 950 kcals and 56gm Pro to meet 86 % kcal and 100+% Pro needs- adequate. Visited pt today, asked how her appetite was .Pt would not speak, only nodded no when I asked if she was hungry and if I could get her something to eat. Will continue to monitor PO intake. Anthropometrics HT: 5 FT WT: 174 LB (79.09 kg) ABW: 119 LB (53.86 kg) BMI: 34.02 (Obese) GI/ Skin Integrity GI: WNL, Soft, Non-tender BM: 11/07 x3 I/O: 1040/Not Noted Skin: WNL, Intact Demetrio: 20 Diet Order: Cardiac, Chopped Estimated Energy Needs: ( Geriatric, ABW) 5917-8765 kcals (20-25 kcals/ kg) 40-55g Pro (0.8-1.0 g/kg) 0323-6602 ml (20-25 ml/kg) Current Diet Order/ Nutrition Support Cardiac, Chopped Pertinent Medications Maalox (PRN), Imodium (PRN), MOM (PRN), Theragran Pertinent Labs 11/06: Glucose 106, BUN/Cr 21/0 .67, Pro Time 12.4, INR 1.1 Nutritional Hx/Data Height 1.52 m Height (Calculated Centimeters) 152.4 Current Weight (lbs) 78.925 kg Weight (Calculated Kilograms) 78.9 Weight (Calculated Grams) 79663.1 [place] Body Weight 100 LB (45.45 kg) % [place] Body Weight 174 Body Mass Index (BMI) 34.0 Weight Status Obese GI Symptoms Last BM 11/07 x3 Skin Integrity/Comment: Skin: WNL, Intact Demetrio: 20 Estimated Nutritional Goals BEE in Kcals: Adj wt of IBW Calories/Kcals/Kg 20-25 Kcals Calculated 6511-1115 Protein: Adj wt of IBW Protein g/k.8-1.0 Protein Calculated 40-55 Fluid: ml 3762-3110 ml (20-25 ml/kg) Nutritional Problem 1. Problem Problem Obesity Etiology r/t consistent energy overconsumption Signs/Symptoms: aeb BMI <30 (34.02). Malnutrition Related to Morbid Obesity Malnutrition related to morbid obesity No Intervention/Recommendation Comments Continue Cardiac, Chopped diet as tolerated. Expected Outcomes/Goals Expected Outcomes/Goals 1.PO intake meet 75% of estimated nutritional needs. 2.Monitor PO intake, wt, nutrition related labs, and skin integrity. 3.F/U as moderate risk in 3-5 days, 11/14-11/16.
[2019-11-15] MEDS: Hydrocodone/APAP 5mg/325mg Tab PO PRN (14:51)
--- NOTE | 2019-11-15 22:54 | Progress Notes ---
DATE: 11/15/2019 SUBJECTIVE: Today on [id number] evaluation does not want to participate in interview . She reported she mostly just wants to go home and does not want to talk about her emotions leading up to the hospitalization. PHYSICAL EXAMINATION: Isolative, withdrawn, disengaged, and internally preoccupied. ASSESSMENT AND PLAN: A 59-year-old female with history of schizophrenia, blunted, disorganized thought process. Still needs a lot of redirection to keep simple ADLs. We will continue treatment and adjustment of antipsychotics. JOB# [id number] [email or web address]
[2019-11-16] MEDS: Multivitamin Tab PO SCH (08:32)
--- NOTE | 2019-11-16 12:56 | Internal Medicine Prog Note ---
Internal Medicine Subjective - Subjective Patient seen and examined:: with staff, chart reviewed Patient is:: awake, verbal, interactive, in bed Per staff patient has:: no adverse event, no episodes of fall, tolerating meds Internal Medicine Objective - Physical Exam Vitals and I&O: Vital Signs Temp 98.5 F 11/15/19 20:24 Pulse 76 11/15/19 20:24 Resp 17 11/16/19 08:00 BP 102/67 11/15/19 20:24 Pulse Ox 97 11/15/19 20:24 Intake & Output 11/15/19 11/16/19 11/16/19 18:59 06:59 18:59 Intake Total 240 430 Balance 240 430 Intake: Oral 240 430 Other: # Voids 1 # Bowel Movements 0 Active Medications: Current Medications Acetaminophen (Tylenol) 650 mg PO Q4H PRN PRN Reason: Pain (Mild 1-3) Stop: 01/07/20 12:08 Hydrocodone Bitart/Acetaminophen ([place] 5mg/325mg) 1 tab PO Q6H PRN PRN Reason: Pain (Severe 7-10) Stop: 01/07/20 12:46 Last Admin: 11/15/19 14:51 Dose: 1 tab Al Hydrox/Mg Hydrox/Simethicone (Maalox) 30 ml PO Q4HR PRN PRN Reason: GI DISTRESS Stop: 01/07/20 12:08 Aripiprazole (Abilify) 15 mg PO DAILY [facility]; Protocol Stop: 01/09/20 08:59 Last Admin: 11/16/19 08:32 Dose: 15 mg Aspirin (Ecotrin) 81 mg PO DAILY [facility] Stop: 01/08/20 08:59 Last Admin: 11/16/19 08:32 Dose: 81 mg Baclofen (Lioresal) 10 mg PO TID PRN PRN Reason: Pain (Moderate 4-6) Stop: 01/07/20 13:59 Last Admin: 11/08/19 22:37 Dose: 10 mg Clonazepam (Klonopin) 1 mg PO BID PRN; Protocol PRN Reason: Agitation Stop: 01/07/20 16:59 Divalproex Sodium (Depakote Dr) 500 mg PO BID [facility]; Protocol Stop: 01/07/20 16:59 Last Admin: 11/16/19 08:32 Dose: 500 mg Gabapentin (Neurontin) 300 mg PO BID [facility] Stop: 01/07/20 16:59 Last Admin: 11/16/19 08:32 Dose: 300 mg Ibuprofen (Motrin) 400 mg PO Q4H PRN PRN Reason: Pain (Severe 7-10) Stop: 01/07/20 12:08 Lamotrigine (Lamictal) 25 mg PO DAILY [facility]; Protocol Stop: 01/16/20 08:59 Lorazepam (Ativan) 0.5 mg PO Q4HR PRN; Protocol PRN Reason: Anxiety Stop: 12/08/19 12:08 Last Admin: 11/09/19 08:26 Dose: 0.5 mg Magnesium Hydroxide (Milk Of Magnesia) 30 ml PO HS PRN PRN Reason: Constipation Multivitamins/Vitamin C (Theragran) 1 tab PO DAILY [facility] Stop: 01/08/20 08:59 Last Admin: 11/16/19 08:32 Dose: 1 tab Trazodone HCl (Desyrel) 150 mg PO HS [facility]; Protocol Stop: 01/07/20 20:59 Last Admin: 11/15/19 20:30 Dose: 150 mg Zolpidem Tartrate (Ambien) 5 mg PO HS PRN PRN Reason: Insomnia Stop: 01/07/20 12:08 General: obese, appears older HEENT: NC/AT, PERRLA Neck: Supple, No JVD, No thyromegaly Lungs: CTAB Cardiovascular: RRR, Normal S1, Normal S2, without murmur Abdomen: soft, non-tender, globular, positive bowel sound Extremities: excoriation Neurological: no change Internal Medicine Assmt/Plan - Assessment Assessment: ASSESSMENT AND PLAN: Urinary tract infection, chronic obstructive pulmonary disease, osteoarthritis, degenerative joint disease, migraine headache, renal insufficiency, mild anemia, and obesity. - Plan Plan: PLAN: We will start the patient on p.o. antibiotic for a short duration. Continue on bronchodilator treatment on as needed basis. Continue with adequate pain control as well as Imitrex for headaches. We will monitor hemoglobin and hematocrit. The patient to be placed on fall precaution. Psychiatry to manage the patient for psych issues. Nutritional Asmnt/Malnutr-PDOC - Dietary Evaluation Malnutrition Findings (Please click <Entered> for more info): Nutritional Asmnt/Malnutrition Start: 04/16/20 16: 37 Text: Status: Complete Freq: Protocol: Document 11/12/19 16:38 GORDON (Rec: 11/12/19 16:40 GORDON [email or web address] [id number]) Nutritional Asmnt/Malnutrition Patient General Information Nutritional Screening Moderate Risk Diagnosis Psychosis Pertinent Medical Hx/Surgical Hx COPD, Arthritis, Migraine Headaches Subjective Information Pt is a 57-year-old male admitted on 07/19 d/t psychosis with grandiosities. Pt is eating an estimated 56% of meals since admit date (x3 days) Per Meal/Nutrition Activity Record. Pt has noted refusal of some meals, nurse stated pt refused breakfast this morning and seems very depressed. Dietary is currently providing an estimated 1700 kcals and 100 gm Pro, per Pt PO intake this is providing an estimated 950 kcals and 56gm Pro to meet 86 % kcal and 100+% Pro needs- adequate. Visited pt today, asked how her appetite was .Pt would not speak, only nodded no when I asked if she was hungry and if I could get her something to eat. Will continue to monitor PO intake. Anthropometrics HT: 5 FT WT: 174 LB (79.09 kg) ABW: 119 LB (53.86 kg) BMI: 34.02 (Obese) GI/ Skin Integrity GI: WNL, Soft, Non-tender BM: 11/07 x3 I/O: 1040/Not Noted Skin: WNL, Intact Demetrio: 20 Diet Order: Cardiac, Chopped Estimated Energy Needs: ( Geriatric, ABW) 2300-1436 kcals (20-25 kcals/ kg) 40-55g Pro (0.8-1.0 g/kg) 2712-8228 ml (20-25 ml/kg) Current Diet Order/ Nutrition Support Cardiac, Chopped Pertinent Medications Maalox (PRN), Imodium (PRN), MOM (PRN), Theragran Pertinent Labs 11/06: Glucose 106, BUN/Cr 21/0 .67, Pro Time 12.4, INR 1.1 Nutritional Hx/Data Height 1.52 m Height (Calculated Centimeters) 152.4 Current Weight (lbs) 78.925 kg Weight (Calculated Kilograms) 78.9 Weight (Calculated Grams) 32197.1 [place] Body Weight 100 LB (45.45 kg) % [place] Body Weight 174 Body Mass Index (BMI) 34.0 Weight Status Obese GI Symptoms Last BM 11/07 x3 Skin Integrity/Comment: Skin: WNL, Intact Demetrio: 20 Estimated Nutritional Goals BEE in Kcals: Adj wt of IBW Calories/Kcals/Kg 20-25 Kcals Calculated 6352-1974 Protein: Adj wt of IBW Protein g/k.8-1.0 Protein Calculated 40-55 Fluid: ml 9143-3019 ml (20-25 ml/kg) Nutritional Problem 1. Problem Problem Obesity Etiology r/t consistent energy overconsumption Signs/Symptoms: aeb BMI <30 (34.02). Malnutrition Related to Morbid Obesity Malnutrition related to morbid obesity No Intervention/Recommendation Comments Continue Cardiac, Chopped diet as tolerated. Expected Outcomes/Goals Expected Outcomes/Goals 1.PO intake meet 75% of estimated nutritional needs. 2.Monitor PO intake, wt, nutrition related labs, and skin integrity. 3.F/U as moderate risk in 3-5 days, 11/14-11/16.
--- NOTE | 2019-11-16 13:39 | Progress Notes ---
DATE: 11/16/2019 SUBJECTIVE: A 59-year-old female who remains mostly depressed, withdrawn, still delusional, claiming she has millions of dollars, homes in the [place]. Her plan is to go to her mansion home. The patient is very depressed appearing, still delusional, still claiming she is , mostly withdrawn, melancholic on exam, seems to be very depressed, down. Staff noting she is mostly depressed, keeps to self, needing prompting for ADLs. I tried to spend the time with the patient, speaking with her, she is a pretty limited historian, not answering some questions. MEDICATIONS: Reviewed. Labs reviewed. Vitals reviewed. Blood pressure 98/65, pulse of 86, also reviewed doctor's note from the weekend. Evaluated for any medication side effects. None noted on exam. MENTAL STATUS EXAMINATION: Stated age, mostly withdrawn, keeps to self, selectively mute at times, not answering some questions. Ongoing delusions. Likely bipolar. PLAN: I will discontinue her mirtazapine in favor of Lamictal. Complex case given difficult to control symptoms, difficult to treat symptoms. The patient is not a good historian. We will continue inpatient monitoring. JOB# [id number]
[2019-11-17] MEDS: Multivitamin Tab PO SCH (08:37)
--- NOTE | 2019-11-17 10:23 | Progress Notes ---
DATE: 11/17/2019 SUBJECTIVE: A 59-year-old female, currently in hospital, still delusional, bizarre, stating [place] and is , very down, depressed, ongoing melancholy. Slept about 8 hours. Time was spent trying to evaluate her thought processes, mentation and mood symptoms, psychotic symptoms, content of her psychosis. Mostly keeps to self, disheveled, concerns that she may act out upon her impulses, psychosis, currently on dosing of Lamictal, Depakote, Remeron, Abilify. Medications were reviewed. Vitals were reviewed. Labs were reviewed. Blood pressure 95/48, pulse of 87. Evaluated for any medication side effects. None noted thus far. No EPS, no akathisia, no rash. MENTAL STATUS EXAMINATION: Mostly withdrawn, keeps to self, delusional, ongoing grandiosities, depressed appearing. DIAGNOSES: Likely bipolar. PLAN: Continue dosing of Lamictal. Complex case. Difficult to control symptoms. We will continue inpatient monitoring. [facility]# [id number]
--- NOTE | 2019-11-17 12:34 | Internal Medicine Prog Note ---
Internal Medicine Subjective - Subjective Patient seen and examined:: with staff, chart reviewed Patient is:: awake, verbal, interactive, in bed Per staff patient has:: no adverse event, no episodes of fall, tolerating meds Internal Medicine Objective - Physical Exam Vitals and I&O: Vital Signs Temp 98.0 F 11/17/19 06:06 Pulse 78 11/17/19 06:06 Resp 16 11/17/19 08:00 BP 99/62 11/17/19 06:06 Pulse Ox 97 11/17/19 06:06 Intake & Output 11/16/19 11/17/19 11/17/19 18:59 06:59 18:59 Intake Total 1100 360 Balance 1100 360 Intake: Oral 860 360 Other 240 Other: # Voids 4 2 # Bowel Movements 0 0 Active Medications: Current Medications Acetaminophen (Tylenol) 650 mg PO Q4H PRN PRN Reason: Pain (Mild 1-3) Stop: 01/07/20 12:08 Hydrocodone Bitart/Acetaminophen ([place] 5mg/325mg) 1 tab PO Q6H PRN PRN Reason: Pain (Severe 7-10) Stop: 01/07/20 12:46 Last Admin: 11/15/19 14:51 Dose: 1 tab Al Hydrox/Mg Hydrox/Simethicone (Maalox) 30 ml PO Q4HR PRN PRN Reason: GI DISTRESS Stop: 01/07/20 12:08 Aripiprazole (Abilify) 15 mg PO DAILY [facility]; Protocol Stop: 01/09/20 08:59 Last Admin: 11/17/19 08:38 Dose: 15 mg Aspirin (Ecotrin) 81 mg PO DAILY [facility] Stop: 01/08/20 08:59 Last Admin: 11/17/19 08:38 Dose: 81 mg Baclofen (Lioresal) 10 mg PO TID PRN PRN Reason: Pain (Moderate 4-6) Stop: 01/07/20 13:59 Last Admin: 11/08/19 22:37 Dose: 10 mg Clonazepam (Klonopin) 1 mg PO BID [facility]; Protocol PRN Reason: Agitation Stop: 01/07/20 16:59 Divalproex Sodium (Depakote Dr) 500 mg PO BID [facility]; Protocol Stop: 01/07/20 16:59 Last Admin: 11/17/19 08:38 Dose: 500 mg Gabapentin (Neurontin) 300 mg PO BID [facility] Stop: 01/07/20 16:59 Last Admin: 11/17/19 08:38 Dose: 300 mg Ibuprofen (Motrin) 400 mg PO Q4H PRN PRN Reason: Pain (Severe 7-10) Stop: 01/07/20 12:08 Lamotrigine (Lamictal) 25 mg PO DAILY [facility]; Protocol Stop: 01/16/20 08:59 Lorazepam (Ativan) 0.5 mg PO Q4HR PRN; Protocol PRN Reason: Anxiety Stop: 12/08/19 12:08 Last Admin: 11/09/19 08:26 Dose: 0.5 mg Magnesium Hydroxide (Milk Of Magnesia) 30 ml PO HS PRN PRN Reason: Constipation Multivitamins/Vitamin C (Theragran) 1 tab PO DAILY [facility] Stop: 01/08/20 08:59 Last Admin: 11/17/19 08:37 Dose: 1 tab Trazodone HCl (Desyrel) 150 mg PO HS [facility]; Protocol Stop: 01/07/20 20:59 Last Admin: 11/16/19 20:54 Dose: 150 mg Zolpidem Tartrate (Ambien) 5 mg PO HS PRN PRN Reason: Insomnia Stop: 01/07/20 12:08 General: obese, appears older HEENT: NC/AT, PERRLA Neck: Supple, No JVD, No thyromegaly Lungs: CTAB Cardiovascular: RRR, Normal S1, Normal S2, without murmur Abdomen: soft, non-tender, globular, positive bowel sound Extremities: excoriation Neurological: no change Internal Medicine Assmt/Plan - Assessment Assessment: ASSESSMENT AND PLAN: Urinary tract infection, chronic obstructive pulmonary disease, osteoarthritis, degenerative joint disease, migraine headache, renal insufficiency, mild anemia, and obesity. - Plan Plan: PLAN: We will start the patient on p.o. antibiotic for a short duration. Continue on bronchodilator treatment on as needed basis. Continue with adequate pain control as well as Imitrex for headaches. We will monitor hemoglobin and hematocrit. The patient to be placed on fall precaution. Psychiatry to manage the patient for psych issues. Nutritional Asmnt/Malnutr-PDOC - Dietary Evaluation Malnutrition Findings (Please click <Entered> for more info): Nutritional Asmnt/Malnutrition Start: 11/12/19 16: 37 Text: Status: Complete Freq: Protocol: Document 11/12/19 16:38 GORDON (Rec: 11/12/19 16:40 GORDON [email or web address] [id number]) Nutritional Asmnt/Malnutrition Patient General Information Nutritional Screening Moderate Risk Diagnosis Psychosis Pertinent Medical Hx/Surgical Hx COPD, Arthritis, Migraine Headaches Subjective Information Pt is a 57-year-old male admitted on 07/19 d/t psychosis with grandiosities. Pt is eating an estimated 56% of meals since admit date (x3 days) Per Meal/Nutrition Activity Record. Pt has noted refusal of some meals, nurse stated pt refused breakfast this morning and seems very depressed. Dietary is currently providing an estimated 1700 kcals and 100 gm Pro, per Pt PO intake this is providing an estimated 950 kcals and 56gm Pro to meet 86 % kcal and 100+% Pro needs- adequate. Visited pt today, asked how her appetite was .Pt would not speak, only nodded no when I asked if she was hungry and if I could get her something to eat. Will continue to monitor PO intake. Anthropometrics HT: 5 FT WT: 174 LB (79.09 kg) ABW: 119 LB (53.86 kg) BMI: 34.02 (Obese) GI/ Skin Integrity GI: WNL, Soft, Non-tender BM: 11/07 x3 I/O: 1040/Not Noted Skin: WNL, Intact Demetrio: 20 Diet Order: Cardiac, Chopped Estimated Energy Needs: ( Geriatric, ABW) 9730-6931 kcals (20-25 kcals/ kg) 40-55g Pro (0.8-1.0 g/kg) 8339-9590 ml (20-25 ml/kg) Current Diet Order/ Nutrition Support Cardiac, Chopped Pertinent Medications Maalox (PRN), Imodium (PRN), MOM (PRN), Theragran Pertinent Labs 11/06: Glucose 106, BUN/Cr 21/0 .67, Pro Time 12.4, INR 1.1 Nutritional Hx/Data Height 1.52 m Height (Calculated Centimeters) 152.4 Current Weight (lbs) 78.925 kg Weight (Calculated Kilograms) 78.9 Weight (Calculated Grams) 74803.1 [place] Body Weight 100 LB (45.45 kg) % [place] Body Weight 174 Body Mass Index (BMI) 34.0 Weight Status Obese GI Symptoms Last BM 11/07 x3 Skin Integrity/Comment: Skin: WNL, Intact Demetrio: 20 Estimated Nutritional Goals BEE in Kcals: Adj wt of IBW Calories/Kcals/Kg 20-25 Kcals Calculated 8091-6249 Protein: Adj wt of IBW Protein g/k.8-1.0 Protein Calculated 40-55 Fluid: ml 0716-0025 ml (20-25 ml/kg) Nutritional Problem 1. Problem Problem Obesity Etiology r/t consistent energy overconsumption Signs/Symptoms: aeb BMI <30 (34.02). Malnutrition Related to Morbid Obesity Malnutrition related to morbid obesity No Intervention/Recommendation Comments Continue Cardiac, Chopped diet as tolerated. Expected Outcomes/Goals Expected Outcomes/Goals 1.PO intake meet 75% of estimated nutritional needs. 2.Monitor PO intake, wt, nutrition related labs, and skin integrity. 3.F/U as moderate risk in 3-5 days, 11/14-11/16.
[2019-11-18] MEDS: Multivitamin Tab PO SCH (08:26)
--- NOTE | 2019-11-18 12:31 | Internal Medicine Prog Note ---
Internal Medicine Subjective - Subjective Patient seen and examined:: with staff, chart reviewed Patient is:: awake, verbal, interactive, in bed Per staff patient has:: no adverse event, no episodes of fall, tolerating meds Internal Medicine Objective - Physical Exam Vitals and I&O: Vital Signs Temp 97.6 F 11/17/19 20:14 Pulse 85 11/18/19 08:00 Resp 20 11/18/19 08:00 BP 95/53 11/18/19 08:00 Pulse Ox 98 11/17/19 20:14 Intake & Output 11/17/19 11/18/19 11/18/19 18:59 06:59 18:59 Intake Total 900 360 Balance 900 360 Intake: Oral 900 360 Other: # Voids 3 1 # Bowel Movements 0 0 Active Medications: Current Medications Acetaminophen (Tylenol) 650 mg PO Q4H PRN PRN Reason: Pain (Mild 1-3) Stop: 01/07/20 12:08 Hydrocodone Bitart/Acetaminophen ([place] 5mg/325mg) 1 tab PO Q6H PRN PRN Reason: Pain (Severe 7-10) Stop: 01/07/20 12:46 Last Admin: 11/15/19 14:51 Dose: 1 tab Al Hydrox/Mg Hydrox/Simethicone (Maalox) 30 ml PO Q4HR PRN PRN Reason: GI DISTRESS Stop: 01/07/20 12:08 Aripiprazole (Abilify) 15 mg PO DAILY [facility]; Protocol Stop: 01/09/20 08:59 Last Admin: 11/18/19 08:28 Dose: 15 mg Aspirin (Ecotrin) 81 mg PO DAILY [facility] Stop: 01/08/20 08:59 Last Admin: 11/18/19 08:26 Dose: 81 mg Baclofen (Lioresal) 10 mg PO TID PRN PRN Reason: Pain (Moderate 4-6) Stop: 01/07/20 13:59 Last Admin: 11/08/19 22:37 Dose: 10 mg Clonazepam (Klonopin) 1 mg PO BID PRN; Protocol PRN Reason: Agitation Stop: 01/07/20 16:59 Divalproex Sodium (Depakote Dr) 500 mg PO BID [facility]; Protocol Stop: 01/07/20 16:59 Last Admin: 11/18/19 08:26 Dose: 500 mg Gabapentin (Neurontin) 300 mg PO BID [facility] Stop: 01/07/20 16:59 Last Admin: 11/18/19 08:26 Dose: 300 mg Ibuprofen (Motrin) 400 mg PO Q4H PRN PRN Reason: Pain (Severe 7-10) Stop: 01/07/20 12:08 Lamotrigine (Lamictal) 25 mg PO DAILY [facility]; Protocol Stop: 01/16/20 08:59 Lorazepam (Ativan) 0.5 mg PO Q4HR PRN; Protocol PRN Reason: Anxiety Stop: 12/08/19 12:08 Last Admin: 11/09/19 08:26 Dose: 0.5 mg Magnesium Hydroxide (Milk Of Magnesia) 30 ml PO HS PRN PRN Reason: Constipation Multivitamins/Vitamin C (Theragran) 1 tab PO DAILY [facility] Stop: 01/08/20 08:59 Last Admin: 11/18/19 08:26 Dose: 1 tab Trazodone HCl (Desyrel) 150 mg PO HS [facility]; Protocol Stop: 01/07/20 20:59 Last Admin: 11/17/19 21:10 Dose: 150 mg Zolpidem Tartrate (Ambien) 5 mg PO HS PRN PRN Reason: Insomnia Stop: 01/07/20 12:08 General: obese, appears older HEENT: NC/AT, PERRLA Neck: Supple, No JVD, No thyromegaly Lungs: CTAB Cardiovascular: RRR, Normal S1, Normal S2, without murmur Abdomen: soft, non-tender, globular, positive bowel sound Extremities: excoriation Neurological: no change Internal Medicine Assmt/Plan - Assessment Assessment: ASSESSMENT AND PLAN: Urinary tract infection, chronic obstructive pulmonary disease, osteoarthritis, degenerative joint disease, migraine headache, renal insufficiency, mild anemia, and obesity. - Plan Plan: PLAN: We will start the patient on p.o. antibiotic for a short duration. Continue on bronchodilator treatment on as needed basis. Continue with adequate pain control as well as Imitrex for headaches. We will monitor hemoglobin and hematocrit. The patient to be placed on fall precaution. Psychiatry to manage the patient for psych issues. Nutritional Asmnt/Malnutr-PDOC - Dietary Evaluation Malnutrition Findings (Please click <Entered> for more info): Nutritional Asmnt/Malnutrition Start: 11/12/19 16: 37 Text: Status: Complete Freq: Protocol: Document 11/12/19 16:38 GORDON (Rec: 11/12/19 16:40 GORDON [email or web address] [id number]) Nutritional Asmnt/Malnutrition Patient General Information Nutritional Screening Moderate Risk Diagnosis Psychosis Pertinent Medical Hx/Surgical Hx COPD, Arthritis, Migraine Headaches Subjective Information Pt is a 57-year-old male admitted on 07/19 d/t psychosis with grandiosities. Pt is eating an estimated 56% of meals since admit date (x3 days) Per Meal/Nutrition Activity Record. Pt has noted refusal of some meals, nurse stated pt refused breakfast this morning and seems very depressed. Dietary is currently providing an estimated 1700 kcals and 100 gm Pro, per Pt PO intake this is providing an estimated 950 kcals and 56gm Pro to meet 86 % kcal and 100+% Pro needs- adequate. Visited pt today, asked how her appetite was .Pt would not speak, only nodded no when I asked if she was hungry and if I could get her something to eat. Will continue to monitor PO intake. Anthropometrics HT: 5 FT WT: 174 LB (79.09 kg) ABW: 119 LB (53.86 kg) BMI: 34.02 (Obese) GI/ Skin Integrity GI: WNL, Soft, Non-tender BM: 11/07 x3 I/O: 1040/Not Noted Skin: WNL, Intact Demetrio: 20 Diet Order: Cardiac, Chopped Estimated Energy Needs: ( Geriatric, ABW) 8841-4837 kcals (20-25 kcals/ kg) 40-55g Pro (0.8-1.0 g/kg) 2020-3884 ml (20-25 ml/kg) Current Diet Order/ Nutrition Support Cardiac, Chopped Pertinent Medications Maalox (PRN), Imodium (PRN), MOM (PRN), Theragran Pertinent Labs 11/06: Glucose 106, BUN/Cr 21/0 .67, Pro Time 12.4, INR 1.1 Nutritional Hx/Data Height 1.52 m Height (Calculated Centimeters) 152.4 Current Weight (lbs) 78.925 kg Weight (Calculated Kilograms) 78.9 Weight (Calculated Grams) 11878.1 [place] Body Weight 100 LB (45.45 kg) % [place] Body Weight 174 Body Mass Index (BMI) 34.0 Weight Status Obese GI Symptoms Last BM 11/07 x3 Skin Integrity/Comment: Skin: WNL, Intact Demetrio: 20 Estimated Nutritional Goals BEE in Kcals: Adj wt of IBW Calories/Kcals/Kg 20-25 Kcals Calculated 4581-0985 Protein: Adj wt of IBW Protein g/k.8-1.0 Protein Calculated 40-55 Fluid: ml 7761-4685 ml (20-25 ml/kg) Nutritional Problem 1. Problem Problem Obesity Etiology r/t consistent energy overconsumption Signs/Symptoms: aeb BMI <30 (34.02). Malnutrition Related to Morbid Obesity Malnutrition related to morbid obesity No Intervention/Recommendation Comments Continue Cardiac, Chopped diet as tolerated. Expected Outcomes/Goals Expected Outcomes/Goals 1.PO intake meet 75% of estimated nutritional needs. 2.Monitor PO intake, wt, nutrition related labs, and skin integrity. 3.F/U as moderate risk in 3-5 days, 11/14-11/16.
--- NOTE | 2019-11-18 16:26 | Progress Notes ---
DATE: 11/18/2019 SUBJECTIVE: A 59-year-old female in the hospital, still delusional, bizarre, making nonsensical comments, stating she wants to go to her mansion. She is more up and around, more awake, less depressed appearing. Currently on dosing of Abilify. Ongoing psychotic symptoms, delusions, perceptual disturbances. Medications were reviewed. Labs were reviewed. Vitals were reviewed. No side effects. No EPS. Blood pressure 98/55, pulse of 78. MENTAL STATUS EXAMINATION: Stated age. Fair eye contact, more awake, alert, mildly broader affect. Still delusional, psychotic. Concerns for grave disability. DIAGNOSIS: Likely bipolar. PLAN: Continue dosing of medications. Complex case given hard to treat symptoms, chronicity of mental illness. JOB# [id number]
[2019-11-19] MEDS: Multivitamin Tab PO SCH (08:35)
--- NOTE | 2019-11-19 12:33 | Progress Notes ---
DATE: 11/19/2019 SUBJECTIVE: A 59-year-old female, currently in the hospital, mostly depressed, withdrawn, keeps to self, had been making some medication adjustments, but still with ongoing delusional, still believing that she has mansions and has millions of dollars. No insight as to the reality of her current circumstances. Time was spent attempting to glean the content of her delusions, mostly believing that she has a house in the [place], still believing that she is . Fair sleep, sleeping, likely too much. Fair appetite, mostly keeping to self. Medications were reviewed. Labs were reviewed. Vitals were reviewed. Nursing notes were reviewed. No side effects. No EPS, no akathisia, no rash. MENTAL STATUS EXAMINATION: Stated age. Mostly withdrawn, keeps to self, ongoing delusions. DIAGNOSIS: Bipolar, possibly schizophrenia. PLAN: We will continue inpatient monitoring and continue to adjust and titrate medications. Complex case given difficult to interview and difficult to control symptoms. [facility]# [id number]
--- NOTE | 2019-11-19 13:08 | Internal Medicine Prog Note ---
Internal Medicine Subjective - Subjective Patient seen and examined:: with staff, chart reviewed Patient is:: awake, verbal, interactive, in bed Per staff patient has:: no adverse event, no episodes of fall, tolerating meds Internal Medicine Objective - Physical Exam Vitals and I&O: Vital Signs Temp 97.1 F 11/19/19 06:17 Pulse 74 11/19/19 06:17 Resp 20 11/19/19 08:00 BP 122/66 11/19/19 06:17 Pulse Ox 100 11/19/19 06:17 Intake & Output 11/18/19 11/19/19 11/19/19 18:59 06:59 18:59 Intake Total 1200 240 Balance 1200 240 Intake: Oral 1200 240 Other: # Voids 2 # Bowel Movements 1 0 Active Medications: Current Medications Acetaminophen (Tylenol) 650 mg PO Q4H PRN PRN Reason: Pain (Mild 1-3) Stop: 01/07/20 12:08 Hydrocodone Bitart/Acetaminophen ([place] 5mg/325mg) 1 tab PO Q6H PRN PRN Reason: Pain (Severe 7-10) Stop: 01/07/20 12:46 Last Admin: 11/15/19 14:51 Dose: 1 tab Al Hydrox/Mg Hydrox/Simethicone (Maalox) 30 ml PO Q4HR PRN PRN Reason: GI DISTRESS Stop: 01/07/20 12:08 Aripiprazole (Abilify) 15 mg PO DAILY [facility]; Protocol Stop: 01/09/20 08:59 Last Admin: 11/19/19 08:35 Dose: 15 mg Aspirin (Ecotrin) 81 mg PO DAILY [facility] Stop: 01/08/20 08:59 Last Admin: 11/19/19 08:35 Dose: 81 mg Baclofen (Lioresal) 10 mg PO TID PRN PRN Reason: Pain (Moderate 4-6) Stop: 01/07/20 13:59 Last Admin: 11/08/19 22:37 Dose: 10 mg Clonazepam (Klonopin) 1 mg PO BID PRN; Protocol PRN Reason: Agitation Stop: 01/07/20 16:59 Divalproex Sodium (Depakote Dr) 500 mg PO BID [facility]; Protocol Stop: 01/07/20 16:59 Last Admin: 11/19/19 08:35 Dose: 500 mg Gabapentin (Neurontin) 300 mg PO BID [facility] Stop: 01/07/20 16:59 Last Admin: 11/19/19 08:35 Dose: 300 mg Ibuprofen (Motrin) 400 mg PO Q4H PRN PRN Reason: Pain (Severe 7-10) Stop: 01/07/20 12:08 Lamotrigine (Lamictal) 25 mg PO DAILY [facility]; Protocol Stop: 01/16/20 08:59 Lorazepam (Ativan) 0.5 mg PO Q4HR PRN; Protocol PRN Reason: Anxiety Stop: 12/08/19 12:08 Last Admin: 11/09/19 08:26 Dose: 0.5 mg Magnesium Hydroxide (Milk Of Magnesia) 30 ml PO HS PRN PRN Reason: Constipation Multivitamins/Vitamin C (Theragran) 1 tab PO DAILY [facility] Stop: 01/08/20 08:59 Last Admin: 11/19/19 08:35 Dose: 1 tab Trazodone HCl (Desyrel) 150 mg PO HS [facility]; Protocol Stop: 01/07/20 20:59 Last Admin: 11/18/19 20:54 Dose: 150 mg Zolpidem Tartrate (Ambien) 5 mg PO HS PRN PRN Reason: Insomnia Stop: 01/07/20 12:08 General: obese, appears older HEENT: NC/AT, PERRLA Neck: Supple, No JVD, No thyromegaly Lungs: CTAB Cardiovascular: RRR, Normal S1, Normal S2, without murmur Abdomen: soft, non-tender, globular, positive bowel sound Extremities: excoriation Neurological: no change Internal Medicine Assmt/Plan - Assessment Assessment: ASSESSMENT AND PLAN: Urinary tract infection, chronic obstructive pulmonary disease, osteoarthritis, degenerative joint disease, migraine headache, renal insufficiency, mild anemia, and obesity. - Plan Plan: PLAN: We will start the patient on p.o. antibiotic for a short duration. Continue on bronchodilator treatment on as needed basis. Continue with adequate pain control as well as Imitrex for headaches. We will monitor hemoglobin and hematocrit. The patient to be placed on fall precaution. Psychiatry to manage the patient for psych issues. Nutritional Asmnt/Malnutr-PDOC - Dietary Evaluation Malnutrition Findings (Please click <Entered> for more info): Nutritional Asmnt/Malnutrition Start: 11/12/19 16: 37 Text: Status: Complete Freq: Protocol: Document 11/12/19 16:38 GORDON (Rec: 11/12/19 16:40 GORDON [email or web address] [id number]) Nutritional Asmnt/Malnutrition Patient General Information Nutritional Screening Moderate Risk Diagnosis Psychosis Pertinent Medical Hx/Surgical Hx COPD, Arthritis, Migraine Headaches Subjective Information Pt is a 57-year-old male admitted on 07/19 d/t psychosis with grandiosities. Pt is eating an estimated 56% of meals since admit date (x3 days) Per Meal/Nutrition Activity Record. Pt has noted refusal of some meals, nurse stated pt refused breakfast this morning and seems very depressed. Dietary is currently providing an estimated 1700 kcals and 100 gm Pro, per Pt PO intake this is providing an estimated 950 kcals and 56gm Pro to meet 86 % kcal and 100+% Pro needs- adequate. Visited pt today, asked how her appetite was .Pt would not speak, only nodded no when I asked if she was hungry and if I could get her something to eat. Will continue to monitor PO intake. Anthropometrics HT: 5 FT WT: 174 LB (79.09 kg) ABW: 119 LB (53.86 kg) BMI: 34.02 (Obese) GI/ Skin Integrity GI: WNL, Soft, Non-tender BM: 11/07 x3 I/O: 1040/Not Noted Skin: WNL, Intact Demetrio: 20 Diet Order: Cardiac, Chopped Estimated Energy Needs: ( Geriatric, ABW) 9250-2907 kcals (20-25 kcals/ kg) 40-55g Pro (0.8-1.0 g/kg) 8104-9913 ml (20-25 ml/kg) Current Diet Order/ Nutrition Support Cardiac, Chopped Pertinent Medications Maalox (PRN), Imodium (PRN), MOM (PRN), Theragran Pertinent Labs 11/06: Glucose 106, BUN/Cr 21/0 .67, Pro Time 12.4, INR 1.1 Nutritional Hx/Data Height 1.52 m Height (Calculated Centimeters) 152.4 Current Weight (lbs) 78.925 kg Weight (Calculated Kilograms) 78.9 Weight (Calculated Grams) 43474.1 [place] Body Weight 100 LB (45.45 kg) % [place] Body Weight 174 Body Mass Index (BMI) 34.0 Weight Status Obese GI Symptoms Last BM 11/07 x3 Skin Integrity/Comment: Skin: WNL, Intact Demetrio: 20 Estimated Nutritional Goals BEE in Kcals: Adj wt of IBW Calories/Kcals/Kg 20-25 Kcals Calculated 0653-8538 Protein: Adj wt of IBW Protein g/k.8-1.0 Protein Calculated 40-55 Fluid: ml 6869-4685 ml (20-25 ml/kg) Nutritional Problem 1. Problem Problem Obesity Etiology r/t consistent energy overconsumption Signs/Symptoms: aeb BMI <30 (34.02). Malnutrition Related to Morbid Obesity Malnutrition related to morbid obesity No Intervention/Recommendation Comments Continue Cardiac, Chopped diet as tolerated. Expected Outcomes/Goals Expected Outcomes/Goals 1.PO intake meet 75% of estimated nutritional needs. 2.Monitor PO intake, wt, nutrition related labs, and skin integrity. 3.F/U as moderate risk in 3-5 days, 11/14-11/16.
[2019-11-20] MEDS: Multivitamin Tab PO SCH (09:41)
--- NOTE | 2019-11-20 13:07 | Internal Medicine Prog Note ---
Internal Medicine Subjective - Subjective Patient seen and examined:: with staff, chart reviewed Patient is:: awake, verbal, interactive, in bed Per staff patient has:: no adverse event, no episodes of fall, tolerating meds Internal Medicine Objective - Physical Exam Vitals and I&O: Vital Signs Temp 98.0 F 11/20/19 05:40 Pulse 88 11/20/19 05:40 Resp 20 11/20/19 05:40 BP 115/68 11/20/19 05:40 Pulse Ox 96 11/20/19 05:40 Intake & Output 11/19/19 11/20/19 11/20/19 18:59 06:59 18:59 Intake Total 800 240 Balance 800 240 Intake: Oral 800 240 Other: # Voids 3 2 # Bowel Movements 1 0 Active Medications: Current Medications Acetaminophen (Tylenol) 650 mg PO Q4H PRN PRN Reason: Pain (Mild 1-3) Stop: 01/07/20 12:08 Hydrocodone Bitart/Acetaminophen ([place] 5mg/325mg) 1 tab PO Q6H PRN PRN Reason: Pain (Severe 7-10) Stop: 01/07/20 12:46 Last Admin: 11/15/19 14:51 Dose: 1 tab Al Hydrox/Mg Hydrox/Simethicone (Maalox) 30 ml PO Q4HR PRN PRN Reason: GI DISTRESS Stop: 01/07/20 12:08 Aripiprazole (Abilify) 15 mg PO DAILY [facility]; Protocol Stop: 01/09/20 08:59 Last Admin: 11/20/19 09:41 Dose: 15 mg Aspirin (Ecotrin) 81 mg PO DAILY [facility] Stop: 01/08/20 08:59 Last Admin: 11/20/19 09:40 Dose: 81 mg Baclofen (Lioresal) 10 mg PO TID PRN PRN Reason: Pain (Moderate 4-6) Stop: 01/07/20 13:59 Last Admin: 11/08/19 22:37 Dose: 10 mg Clonazepam (Klonopin) 1 mg PO BID PRN; Protocol PRN Reason: Agitation Stop: 01/07/20 16:59 Last Admin: 11/20/19 09:41 Dose: 1 mg Divalproex Sodium (Depakote Dr) 500 mg PO BID [facility]; Protocol Stop: 01/07/20 16:59 Last Admin: 04/24/20 09:41 Dose: 500 mg Gabapentin (Neurontin) 300 mg PO BID [facility] Stop: 01/07/20 16:59 Last Admin: 11/20/19 09:40 Dose: 300 mg Ibuprofen (Motrin) 400 mg PO Q4H PRN PRN Reason: Pain (Severe 7-10) Stop: 01/07/20 12:08 Lamotrigine (Lamictal) 25 mg PO DAILY [facility]; Protocol Stop: 01/16/20 08:59 Lorazepam (Ativan) 0.5 mg PO Q4HR PRN; Protocol PRN Reason: Anxiety Stop: 12/08/19 12:08 Last Admin: 11/09/19 08:26 Dose: 0.5 mg Magnesium Hydroxide (Milk Of Magnesia) 30 ml PO HS PRN PRN Reason: Constipation Multivitamins/Vitamin C (Theragran) 1 tab PO DAILY [facility] Stop: 01/08/20 08:59 Last Admin: 11/20/19 09:41 Dose: 1 tab Trazodone HCl (Desyrel) 150 mg PO HS [facility]; Protocol Stop: 01/07/20 20:59 Last Admin: 11/19/19 20:38 Dose: 150 mg Zolpidem Tartrate (Ambien) 5 mg PO HS PRN PRN Reason: Insomnia Stop: 01/07/20 12:08 General: obese, appears older HEENT: NC/AT, PERRLA Neck: Supple, No JVD, No thyromegaly Lungs: CTAB Cardiovascular: RRR, Normal S1, Normal S2, without murmur Abdomen: soft, non-tender, globular, positive bowel sound Extremities: excoriation Neurological: no change Internal Medicine Assmt/Plan - Assessment Assessment: ASSESSMENT AND PLAN: Urinary tract infection, chronic obstructive pulmonary disease, osteoarthritis, degenerative joint disease, migraine headache, renal insufficiency, mild anemia, and obesity. - Plan Plan: PLAN: We will start the patient on p.o. antibiotic for a short duration. Continue on bronchodilator treatment on as needed basis. Continue with adequate pain control as well as Imitrex for headaches. We will monitor hemoglobin and hematocrit. The patient to be placed on fall precaution. Psychiatry to manage the patient for psych issues. Nutritional Asmnt/Malnutr-PDOC - Dietary Evaluation Malnutrition Findings (Please click <Entered> for more info): Nutritional Asmnt/Malnutrition Start: 11/12/19 16: 37 Text: Status: Complete Freq: Protocol: Document 11/12/19 16:38 GORDON (Rec: 11/12/19 16:40 GORDON [email or web address] [id number]) Nutritional Asmnt/Malnutrition Patient General Information Nutritional Screening Moderate Risk Diagnosis Psychosis Pertinent Medical Hx/Surgical Hx COPD, Arthritis, Migraine Headaches Subjective Information Pt is a 57-year-old male admitted on 07/19 d/t psychosis with grandiosities. Pt is eating an estimated 56% of meals since admit date (x3 days) Per Meal/Nutrition Activity Record. Pt has noted refusal of some meals, nurse stated pt refused breakfast this morning and seems very depressed. Dietary is currently providing an estimated 1700 kcals and 100 gm Pro, per Pt PO intake this is providing an estimated 950 kcals and 56gm Pro to meet 86 % kcal and 100+% Pro needs- adequate. Visited pt today, asked how her appetite was .Pt would not speak, only nodded no when I asked if she was hungry and if I could get her something to eat. Will continue to monitor PO intake. Anthropometrics HT: 5 FT WT: 174 LB (79.09 kg) ABW: 119 LB (53.86 kg) BMI: 34.02 (Obese) GI/ Skin Integrity GI: WNL, Soft, Non-tender BM: 11/07 x3 I/O: 1040/Not Noted Skin: WNL, Intact Demetrio: 20 Diet Order: Cardiac, Chopped Estimated Energy Needs: ( Geriatric, ABW) 4868-9710 kcals (20-25 kcals/ kg) 40-55g Pro (0.8-1.0 g/kg) 7168-1394 ml (20-25 ml/kg) Current Diet Order/ Nutrition Support Cardiac, Chopped Pertinent Medications Maalox (PRN), Imodium (PRN), MOM (PRN), Theragran Pertinent Labs 11/06: Glucose 106, BUN/Cr 21/0 .67, Pro Time 12.4, INR 1.1 Nutritional Hx/Data Height 1.52 m Height (Calculated Centimeters) 152.4 Current Weight (lbs) 78.925 kg Weight (Calculated Kilograms) 78.9 Weight (Calculated Grams) 69940.1 [place] Body Weight 100 LB (45.45 kg) % [place] Body Weight 174 Body Mass Index (BMI) 34.0 Weight Status Obese GI Symptoms Last BM 11/07 x3 Skin Integrity/Comment: Skin: WNL, Intact Demetrio: 20 Estimated Nutritional Goals BEE in Kcals: Adj wt of IBW Calories/Kcals/Kg 20-25 Kcals Calculated 3380-1007 Protein: Adj wt of IBW Protein g/k.8-1.0 Protein Calculated 40-55 Fluid: ml 8790-9014 ml (20-25 ml/kg) Nutritional Problem 1. Problem Problem Obesity Etiology r/t consistent energy overconsumption Signs/Symptoms: aeb BMI <30 (34.02). Malnutrition Related to Morbid Obesity Malnutrition related to morbid obesity No Intervention/Recommendation Comments Continue Cardiac, Chopped diet as tolerated. Expected Outcomes/Goals Expected Outcomes/Goals 1.PO intake meet 75% of estimated nutritional needs. 2.Monitor PO intake, wt, nutrition related labs, and skin integrity. 3.F/U as moderate risk in 3-5 days, 11/14-11/16.
--- NOTE | 2019-11-20 17:25 | Progress Notes ---
DATE: 11/20/2019 SUBJECTIVE: A 59-year-old female seems to be showing some signs of improvement, generally calmer. I spent some time with the patient, she is now telling me that she lives in a board and care, but also has a mansion and would prefer to go back to her parents' mansion in the [place]. No longer believes she is . Psychotic symptoms seem to be lessening, dissipating, and decreasing. Mostly withdrawn, keeps to self. She does seem to be more energetic, more awake, alert, answering more questions. Eating on her own volition, perhaps improving. Also discussed with nursing, fair sleep and appetite. Medications were reviewed. Labs were reviewed. Vitals were reviewed. Evaluated also for any medication side effects, none noted. No EPS. No akathisia. No rash. MENTAL STATUS EXAMINATION: Stated age. Fair eye contact. Mood "okay." Affect flat. Thought processes were tangential. Ongoing delusions, but less. Denying that she is , "I don't think I am ," but still talking about having millions in a mansion house. Fair insight. DIAGNOSIS: Likely bipolar, rule out schizoaffective versus schizophrenia. PLAN: The patient is improving, tolerant to medications. Complex case given somewhat difficult to control symptoms. JOB# [id number]
[2019-11-21] MEDS: Multivitamin Tab PO SCH (09:16)
--- NOTE | 2019-11-21 23:32 | Internal Medicine Prog Note ---
Internal Medicine Subjective - Subjective Patient seen and examined:: with staff, chart reviewed Patient is:: awake, verbal, interactive, in bed Per staff patient has:: no adverse event, no episodes of fall, tolerating meds Internal Medicine Objective - Physical Exam Vitals and I&O: Vital Signs Temp 97.7 F 11/21/19 20:08 Pulse 80 11/21/19 20:08 Resp 18 11/21/19 20:08 BP 99/57 11/21/19 20:08 Pulse Ox 97 11/21/19 20:08 Intake & Output 11/21/19 11/21/19 11/22/19 06:59 18:59 06:59 Intake Total 180 950 240 Output Total 1 Balance 180 950 239 Intake: Oral 180 950 240 Output: Urine/Stool Mix 1 Other: # Voids 0 3 1 # Bowel Movements 0 1 Active Medications: Current Medications Acetaminophen (Tylenol) 650 mg PO Q4H PRN PRN Reason: Pain (Mild 1-3) Stop: 01/07/20 12:08 Hydrocodone Bitart/Acetaminophen ([place] 5mg/325mg) 1 tab PO Q6H PRN PRN Reason: Pain (Severe 7-10) Stop: 01/07/20 12:46 Last Admin: 11/15/19 14:51 Dose: 1 tab Al Hydrox/Mg Hydrox/Simethicone (Maalox) 30 ml PO Q4HR PRN PRN Reason: GI DISTRESS Stop: 01/07/20 12:08 Aripiprazole (Abilify) 15 mg PO DAILY [facility]; Protocol Stop: 01/09/20 08:59 Last Admin: 11/21/19 09:16 Dose: 15 mg Aspirin (Ecotrin) 81 mg PO DAILY [facility] Stop: 01/08/20 08:59 Last Admin: 11/21/19 09:16 Dose: 81 mg Baclofen (Lioresal) 10 mg PO TID PRN PRN Reason: Pain (Moderate 4-6) Stop: 01/07/20 13:59 Last Admin: 11/08/19 22:37 Dose: 10 mg Clonazepam (Klonopin) 1 mg PO BID [facility]; Protocol PRN Reason: Agitation Stop: 01/07/20 16:59 Last Admin: 11/20/19 09:41 Dose: 1 mg Divalproex Sodium (Depakote Dr) 500 mg PO BID [facility]; Protocol Stop: 01/07/20 16:59 Last Admin: 11/21/19 16:20 Dose: 500 mg Gabapentin (Neurontin) 300 mg PO BID [facility] Stop: 01/07/20 16:59 Last Admin: 11/21/19 16:20 Dose: 300 mg Ibuprofen (Motrin) 400 mg PO Q4H PRN PRN Reason: Pain (Severe 7-10) Stop: 01/07/20 12:08 Lamotrigine (Lamictal) 25 mg PO DAILY [facility]; Protocol Stop: 01/19/20 14:59 Last Admin: 11/21/19 09:16 Dose: 25 mg Lorazepam (Ativan) 0.5 mg PO Q4HR PRN; Protocol PRN Reason: Anxiety Stop: 12/08/19 12:08 Last Admin: 11/09/19 08:26 Dose: 0.5 mg Magnesium Hydroxide (Milk Of Magnesia) 30 ml PO HS PRN PRN Reason: Constipation Multivitamins/Vitamin C (Theragran) 1 tab PO DAILY [facility] Stop: 01/08/20 08:59 Last Admin: 11/21/19 09:16 Dose: 1 tab Trazodone HCl (Desyrel) 150 mg PO HS [facility]; Protocol Stop: 01/07/20 20:59 Last Admin: 11/21/19 20:28 Dose: 150 mg Zolpidem Tartrate (Ambien) 5 mg PO HS PRN PRN Reason: Insomnia Stop: 01/07/20 12:08 General: obese, appears older HEENT: NC/AT, PERRLA Neck: Supple, No JVD, No thyromegaly Lungs: CTAB Cardiovascular: RRR, Normal S1, Normal S2, without murmur Abdomen: soft, non-tender, globular, positive bowel sound Extremities: excoriation Neurological: no change Internal Medicine Assmt/Plan - Assessment Assessment: ASSESSMENT AND PLAN: Urinary tract infection, chronic obstructive pulmonary disease, osteoarthritis, degenerative joint disease, migraine headache, renal insufficiency, mild anemia, and obesity. - Plan Plan: PLAN: We will start the patient on p.o. antibiotic for a short duration. Continue on bronchodilator treatment on as needed basis. Continue with adequate pain control as well as Imitrex for headaches. We will monitor hemoglobin and hematocrit. The patient to be placed on fall precaution. Psychiatry to manage the patient for psych issues. Nutritional Asmnt/Malnutr-PDOC - Dietary Evaluation Malnutrition Findings (Please click <Entered> for more info): Nutritional Asmnt/Malnutrition Start: 11/12/19 16: 37 Text: Status: Complete Freq: Protocol: Document 11/12/19 16:38 GORDON (Rec: 11/12/19 16:40 GORDON [email or web address] [id number]) Nutritional Asmnt/Malnutrition Patient General Information Nutritional Screening Moderate Risk Diagnosis Psychosis Pertinent Medical Hx/Surgical Hx COPD, Arthritis, Migraine Headaches Subjective Information Pt is a 57-year-old male admitted on 07/19 d/t psychosis with grandiosities. Pt is eating an estimated 56% of meals since admit date (x3 days) Per Meal/Nutrition Activity Record. Pt has noted refusal of some meals, nurse stated pt refused breakfast this morning and seems very depressed. Dietary is currently providing an estimated 1700 kcals and 100 gm Pro, per Pt PO intake this is providing an estimated 950 kcals and 56gm Pro to meet 86 % kcal and 100+% Pro needs- adequate. Visited pt today, asked how her appetite was .Pt would not speak, only nodded no when I asked if she was hungry and if I could get her something to eat. Will continue to monitor PO intake. Anthropometrics HT: 5 FT WT: 174 LB (79.09 kg) ABW: 119 LB (53.86 kg) BMI: 34.02 (Obese) GI/ Skin Integrity GI: WNL, Soft, Non-tender BM: 11/07 x3 I/O: 1040/Not Noted Skin: WNL, Intact Demetrio: 20 Diet Order: Cardiac, Chopped Estimated Energy Needs: ( Geriatric, ABW) 0977-8569 kcals (20-25 kcals/ kg) 40-55g Pro (0.8-1.0 g/kg) 7575-0878 ml (20-25 ml/kg) Current Diet Order/ Nutrition Support Cardiac, Chopped Pertinent Medications Maalox (PRN), Imodium (PRN), MOM (PRN), Theragran Pertinent Labs 11/06: Glucose 106, BUN/Cr 21/0 .67, Pro Time 12.4, INR 1.1 Nutritional Hx/Data Height 1.52 m Height (Calculated Centimeters) 152.4 Current Weight (lbs) 78.925 kg Weight (Calculated Kilograms) 78.9 Weight (Calculated Grams) 44061.1 [place] Body Weight 100 LB (45.45 kg) % [place] Body Weight 174 Body Mass Index (BMI) 34.0 Weight Status Obese GI Symptoms Last BM 11/07 x3 Skin Integrity/Comment: Skin: WNL, Intact Demetrio: 20 Estimated Nutritional Goals BEE in Kcals: Adj wt of IBW Calories/Kcals/Kg 20-25 Kcals Calculated 7243-8045 Protein: Adj wt of IBW Protein g/k.8-1.0 Protein Calculated 40-55 Fluid: ml 2840-0725 ml (20-25 ml/kg) Nutritional Problem 1. Problem Problem Obesity Etiology r/t consistent energy overconsumption Signs/Symptoms: aeb BMI <30 (34.02). Malnutrition Related to Morbid Obesity Malnutrition related to morbid obesity No Intervention/Recommendation Comments Continue Cardiac, Chopped diet as tolerated. Expected Outcomes/Goals Expected Outcomes/Goals 1.PO intake meet 75% of estimated nutritional needs. 2.Monitor PO intake, wt, nutrition related labs, and skin integrity. 3.F/U as moderate risk in 3-5 days, 11/14-11/16.
--- NOTE | 2019-11-22 06:38 | Progress Notes ---
DATE: 11/22/2019 SUBJECTIVE: A 59-year-old female, currently in the hospital, seems to be generally calmer, showing some signs of improvement. No longer talking about being for example, still believing that she has [place], is very rich, has millions of dollars. In reality, she lives in a long term type setting. Not particularly agitated or aggressive. Staff noting that she has been more redirectable, but still mostly depressed, withdrawn in her room. Time was spent with the patient evaluating her thought content. Medications were reviewed. Vitals were reviewed. Labs were reviewed. Blood pressure 99/57, pulse of 80. Evaluated for any medication side effects, none noted. Doing well with dosing of Abilify. MENTAL STATUS EXAMINATION: Stated age, fair eye contact. Speech within normal limits. Still some grandiosities, delusions, poor insight, fair orientation. DIAGNOSIS: Likely bipolar disorder, rule out schizoaffective, rule out schizophrenia. ASSESSMENT: A 59-year-old female with ongoing delusions, grandiosities, but calmer, still depressed, withdrawn. PLAN: We will continue inpatient monitoring. Consider dose titration of medications. Work on the patient's reality testing or ____. JOB# [id number]
[2019-11-22] MEDS: Multivitamin Tab PO SCH (08:51)
--- NOTE | 2019-11-22 12:56 | Internal Medicine Prog Note ---
Internal Medicine Subjective - Subjective Patient seen and examined:: with staff, chart reviewed Patient is:: awake, verbal, interactive, in bed Per staff patient has:: no adverse event, no episodes of fall, tolerating meds Internal Medicine Objective - Physical Exam Vitals and I&O: Vital Signs Temp 97.8 F 11/22/19 06:00 Pulse 64 11/22/19 06:00 Resp 18 11/22/19 07:21 BP 99/58 11/22/19 06:00 Pulse Ox 96 11/22/19 06:00 Intake & Output 11/21/19 11/22/19 11/22/19 18:59 06:59 18:59 Intake Total 950 300 Output Total 1 Balance 950 299 Intake: Oral 950 300 Output: Urine/Stool Mix 1 Other: # Voids 3 1 # Bowel Movements 1 0 Active Medications: Current Medications Acetaminophen (Tylenol) 650 mg PO Q4H PRN PRN Reason: Pain (Mild 1-3) Stop: 01/07/20 12:08 Hydrocodone Bitart/Acetaminophen ([place] 5mg/325mg) 1 tab PO Q6H PRN PRN Reason: Pain (Severe 7-10) Stop: 01/07/20 12:46 Last Admin: 11/15/19 14:51 Dose: 1 tab Al Hydrox/Mg Hydrox/Simethicone (Maalox) 30 ml PO Q4HR PRN PRN Reason: GI DISTRESS Stop: 01/07/20 12:08 Aripiprazole (Abilify) 15 mg PO DAILY [facility]; Protocol Stop: 01/09/20 08:59 Last Admin: 11/22/19 08:50 Dose: 15 mg Aspirin (Ecotrin) 81 mg PO DAILY [facility] Stop: 01/08/20 08:59 Last Admin: 11/22/19 08:50 Dose: 81 mg Baclofen (Lioresal) 10 mg PO TID PRN PRN Reason: Pain (Moderate 4-6) Stop: 01/07/20 13:59 Last Admin: 11/08/19 22:37 Dose: 10 mg Clonazepam (Klonopin) 1 mg PO BID PRN; Protocol PRN Reason: Agitation Stop: 01/07/20 16:59 Last Admin: 11/20/19 09:41 Dose: 1 mg Divalproex Sodium (Depakote Dr) 500 mg PO BID [facility]; Protocol Stop: 01/07/20 16:59 Last Admin: 11/22/19 08:50 Dose: 500 mg Gabapentin (Neurontin) 300 mg PO BID [facility] Stop: 01/07/20 16:59 Last Admin: 11/22/19 08:50 Dose: 300 mg Ibuprofen (Motrin) 400 mg PO Q4H PRN PRN Reason: Pain (Severe 7-10) Stop: 01/07/20 12:08 Lamotrigine (Lamictal) 25 mg PO DAILY [facility]; Protocol Stop: 01/19/20 14:59 Last Admin: 11/22/19 08:50 Dose: 25 mg Lorazepam (Ativan) 0.5 mg PO Q4HR PRN; Protocol PRN Reason: Anxiety Stop: 12/08/19 12:08 Last Admin: 11/09/19 08:26 Dose: 0.5 mg Magnesium Hydroxide (Milk Of Magnesia) 30 ml PO HS PRN PRN Reason: Constipation Multivitamins/Vitamin C (Theragran) 1 tab PO DAILY [facility] Stop: 01/08/20 08:59 Last Admin: 11/22/19 08:51 Dose: 1 tab Trazodone HCl (Desyrel) 150 mg PO HS [facility]; Protocol Stop: 01/07/20 20:59 Last Admin: 11/21/19 20:28 Dose: 150 mg Zolpidem Tartrate (Ambien) 5 mg PO HS PRN PRN Reason: Insomnia Stop: 01/07/20 12:08 General: obese, appears older HEENT: NC/AT, PERRLA Neck: Supple, No JVD, No thyromegaly Lungs: CTAB Cardiovascular: RRR, Normal S1, Normal S2, without murmur Abdomen: soft, non-tender, globular, positive bowel sound Extremities: excoriation Neurological: no change Internal Medicine Assmt/Plan - Assessment Assessment: ASSESSMENT AND PLAN: Urinary tract infection, chronic obstructive pulmonary disease, osteoarthritis, degenerative joint disease, migraine headache, renal insufficiency, mild anemia, and obesity. - Plan Plan: PLAN: We will start the patient on p.o. antibiotic for a short duration. Continue on bronchodilator treatment on as needed basis. Continue with adequate pain control as well as Imitrex for headaches. We will monitor hemoglobin and hematocrit. The patient to be placed on fall precaution. Psychiatry to manage the patient for psych issues. meds renewed Nutritional Asmnt/Malnutr-PDOC - Dietary Evaluation Malnutrition Findings (Please click <Entered> for more info): Nutritional Asmnt/Malnutrition Start: 11/12/19 16: 37 Text: Status: Complete Freq: Protocol: Document 11/12/19 16:38 GORDON (Rec: 11/12/19 16:40 GORDON [email or web address] [id number]) Nutritional Asmnt/Malnutrition Patient General Information Nutritional Screening Moderate Risk Diagnosis Psychosis Pertinent Medical Hx/Surgical Hx COPD, Arthritis, Migraine Headaches Subjective Information Pt is a 57-year-old male admitted on 07/19 d/t psychosis with grandiosities. Pt is eating an estimated 56% of meals since admit date (x3 days) Per Meal/Nutrition Activity Record. Pt has noted refusal of some meals, nurse stated pt refused breakfast this morning and seems very depressed. Dietary is currently providing an estimated 1700 kcals and 100 gm Pro, per Pt PO intake this is providing an estimated 950 kcals and 56gm Pro to meet 86 % kcal and 100+% Pro needs- adequate. Visited pt today, asked how her appetite was .Pt would not speak, only nodded no when I asked if she was hungry and if I could get her something to eat. Will continue to monitor PO intake. Anthropometrics HT: 5 FT WT: 174 LB (79.09 kg) ABW: 119 LB (53.86 kg) BMI: 34.02 (Obese) GI/ Skin Integrity GI: WNL, Soft, Non-tender BM: 11/07 x3 I/O: 1040/Not Noted Skin: WNL, Intact Demetrio: 20 Diet Order: Cardiac, Chopped Estimated Energy Needs: ( Geriatric, ABW) 4677-0067 kcals (20-25 kcals/ kg) 40-55g Pro (0.8-1.0 g/kg) 4704-8111 ml (20-25 ml/kg) Current Diet Order/ Nutrition Support Cardiac, Chopped Pertinent Medications Maalox (PRN), Imodium (PRN), MOM (PRN), Theragran Pertinent Labs 11/06: Glucose 106, BUN/Cr 21/0 .67, Pro Time 12.4, INR 1.1 Nutritional Hx/Data Height 1.52 m Height (Calculated Centimeters) 152.4 Current Weight (lbs) 78.925 kg Weight (Calculated Kilograms) 78.9 Weight (Calculated Grams) 13320.1 [place] Body Weight 100 LB (45.45 kg) % [place] Body Weight 174 Body Mass Index (BMI) 34.0 Weight Status Obese GI Symptoms Last BM 11/07 x3 Skin Integrity/Comment: Skin: WNL, Intact Demetrio: 20 Estimated Nutritional Goals BEE in Kcals: Adj wt of IBW Calories/Kcals/Kg 20-25 Kcals Calculated 0254-0017 Protein: Adj wt of IBW Protein g/k.8-1.0 Protein Calculated 40-55 Fluid: ml 5900-1190 ml (20-25 ml/kg) Nutritional Problem 1. Problem Problem Obesity Etiology r/t consistent energy overconsumption Signs/Symptoms: aeb BMI <30 (34.02). Malnutrition Related to Morbid Obesity Malnutrition related to morbid obesity No Intervention/Recommendation Comments Continue Cardiac, Chopped diet as tolerated. Expected Outcomes/Goals Expected Outcomes/Goals 1.PO intake meet 75% of estimated nutritional needs. 2.Monitor PO intake, wt, nutrition related labs, and skin integrity. 3.F/U as moderate risk in 3-5 days, 11/14-11/16.
[2019-11-23] MEDS: Multivitamin Tab PO SCH (08:27)
--- NOTE | 2019-11-23 13:23 | Internal Medicine Prog Note ---
Internal Medicine Subjective - Subjective Patient seen and examined:: with staff, chart reviewed Patient is:: awake, verbal, interactive, in bed Per staff patient has:: no adverse event, no episodes of fall, tolerating meds Internal Medicine Objective - Physical Exam Vitals and I&O: Vital Signs Temp 97.2 F 11/23/19 06:08 Pulse 63 11/23/19 06:08 Resp 17 11/23/19 08:00 BP 95/61 11/23/19 06:08 Pulse Ox 94 11/23/19 06:08 Intake & Output 11/22/19 11/23/19 11/23/19 18:59 06:59 18:59 Intake Total 1000 300 Balance 1000 300 Intake: Oral 1000 300 Other: # Voids 1 # Bowel Movements 1 0 Active Medications: Current Medications Acetaminophen (Tylenol) 650 mg PO Q4H PRN PRN Reason: Pain (Mild 1-3) Stop: 01/07/20 12:08 Hydrocodone Bitart/Acetaminophen ([place] 5mg/325mg) 1 tab PO Q6H PRN PRN Reason: Pain (Severe 7-10) Stop: 01/07/20 12:46 Last Admin: 11/15/19 14:51 Dose: 1 tab Al Hydrox/Mg Hydrox/Simethicone (Maalox) 30 ml PO Q4HR PRN PRN Reason: GI DISTRESS Stop: 01/07/20 12:08 Aripiprazole (Abilify) 15 mg PO DAILY [facility]; Protocol Stop: 01/09/20 08:59 Last Admin: 11/23/19 08:27 Dose: 15 mg Aspirin (Ecotrin) 81 mg PO DAILY [facility] Stop: 01/08/20 08:59 Last Admin: 11/23/19 08:28 Dose: 81 mg Baclofen (Lioresal) 10 mg PO TID PRN PRN Reason: Pain (Moderate 4-6) Stop: 01/07/20 13:59 Last Admin: 11/08/19 22:37 Dose: 10 mg Clonazepam (Klonopin) 1 mg PO BID PRN; Protocol PRN Reason: Agitation Stop: 01/07/20 16:59 Last Admin: 11/20/19 09:41 Dose: 1 mg Divalproex Sodium (Depakote Dr) 500 mg PO BID [facility]; Protocol Stop: 01/07/20 16:59 Last Admin: 11/23/19 08:27 Dose: 500 mg Gabapentin (Neurontin) 300 mg PO BID [facility] Stop: 01/07/20 16:59 Last Admin: 11/23/19 08:27 Dose: 300 mg Ibuprofen (Motrin) 400 mg PO Q4H PRN PRN Reason: Pain (Severe 7-10) Stop: 01/07/20 12:08 Lamotrigine (Lamictal) 25 mg PO DAILY [facility]; Protocol Stop: 01/19/20 14:59 Last Admin: 11/23/19 08:28 Dose: 25 mg Lorazepam (Ativan) 0.5 mg PO Q4HR PRN; Protocol PRN Reason: Anxiety Stop: 12/08/19 12:08 Last Admin: 11/09/19 08:26 Dose: 0.5 mg Magnesium Hydroxide (Milk Of Magnesia) 30 ml PO HS PRN PRN Reason: Constipation Multivitamins/Vitamin C (Theragran) 1 tab PO DAILY [facility] Stop: 01/08/20 08:59 Last Admin: 11/23/19 08:27 Dose: 1 tab Trazodone HCl (Desyrel) 150 mg PO HS [facility]; Protocol Stop: 01/07/20 20:59 Last Admin: 11/22/19 21:08 Dose: 150 mg Zolpidem Tartrate (Ambien) 5 mg PO HS PRN PRN Reason: Insomnia Stop: 01/07/20 12:08 General: obese, appears older HEENT: NC/AT, PERRLA Neck: Supple, No JVD, No thyromegaly Lungs: CTAB Cardiovascular: RRR, Normal S1, Normal S2, without murmur Abdomen: soft, non-tender, globular, positive bowel sound Extremities: excoriation Neurological: no change Internal Medicine Assmt/Plan - Assessment Assessment: ASSESSMENT AND PLAN: Urinary tract infection, chronic obstructive pulmonary disease, osteoarthritis, degenerative joint disease, migraine headache, renal insufficiency, mild anemia, and obesity. - Plan Plan: PLAN: We will start the patient on p.o. antibiotic for a short duration. Continue on bronchodilator treatment on as needed basis. Continue with adequate pain control as well as Imitrex for headaches. We will monitor hemoglobin and hematocrit. The patient to be placed on fall precaution. Psychiatry to manage the patient for psych issues. meds renewed Nutritional Asmnt/Malnutr-PDOC - Dietary Evaluation Malnutrition Findings (Please click <Entered> for more info): Nutritional Asmnt/Malnutrition Start: 11/12/19 16: 37 Text: Status: Complete Freq: Protocol: Document 11/12/19 16:38 GORDON (Rec: 11/12/19 16:40 GORDON [email or web address] [id number]) Nutritional Asmnt/Malnutrition Patient General Information Nutritional Screening Moderate Risk Diagnosis Psychosis Pertinent Medical Hx/Surgical Hx COPD, Arthritis, Migraine Headaches Subjective Information Pt is a 57-year-old male admitted on 07/19 d/t psychosis with grandiosities. Pt is eating an estimated 56% of meals since admit date (x3 days) Per Meal/Nutrition Activity Record. Pt has noted refusal of some meals, nurse stated pt refused breakfast this morning and seems very depressed. Dietary is currently providing an estimated 1700 kcals and 100 gm Pro, per Pt PO intake this is providing an estimated 950 kcals and 56gm Pro to meet 86 % kcal and 100+% Pro needs- adequate. Visited pt today, asked how her appetite was .Pt would not speak, only nodded no when I asked if she was hungry and if I could get her something to eat. Will continue to monitor PO intake. Anthropometrics HT: 5 FT WT: 174 LB (79.09 kg) ABW: 119 LB (53.86 kg) BMI: 34.02 (Obese) GI/ Skin Integrity GI: WNL, Soft, Non-tender BM: 11/07 x3 I/O: 1040/Not Noted Skin: WNL, Intact Demetrio: 20 Diet Order: Cardiac, Chopped Estimated Energy Needs: ( Geriatric, ABW) 9208-4101 kcals (20-25 kcals/ kg) 40-55g Pro (0.8-1.0 g/kg) 4830-6934 ml (20-25 ml/kg) Current Diet Order/ Nutrition Support Cardiac, Chopped Pertinent Medications Maalox (PRN), Imodium (PRN), MOM (PRN), Theragran Pertinent Labs 11/06: Glucose 106, BUN/Cr 21/0 .67, Pro Time 12.4, INR 1.1 Nutritional Hx/Data Height 1.52 m Height (Calculated Centimeters) 152.4 Current Weight (lbs) 78.925 kg Weight (Calculated Kilograms) 78.9 Weight (Calculated Grams) 04117.1 [place] Body Weight 100 LB (45.45 kg) % [place] Body Weight 174 Body Mass Index (BMI) 34.0 Weight Status Obese GI Symptoms Last BM 11/07 x3 Skin Integrity/Comment: Skin: WNL, Intact Demetrio: 20 Estimated Nutritional Goals BEE in Kcals: Adj wt of IBW Calories/Kcals/Kg 20-25 Kcals Calculated 8781-6541 Protein: Adj wt of IBW Protein g/k.8-1.0 Protein Calculated 40-55 Fluid: ml 6344-0843 ml (20-25 ml/kg) Nutritional Problem 1. Problem Problem Obesity Etiology r/t consistent energy overconsumption Signs/Symptoms: aeb BMI <30 (34.02). Malnutrition Related to Morbid Obesity Malnutrition related to morbid obesity No Intervention/Recommendation Comments Continue Cardiac, Chopped diet as tolerated. Expected Outcomes/Goals Expected Outcomes/Goals 1.PO intake meet 75% of estimated nutritional needs. 2.Monitor PO intake, wt, nutrition related labs, and skin integrity. 3.F/U as moderate risk in 3-5 days, 11/14-11/16.
--- NOTE | 2019-11-23 14:24 | Progress Notes ---
DATE: 11/23/2019 SUBJECTIVE: A 59-year-old female, currently in the hospital, seems to be calm and generally improving. No longer believes she is , still talking about mansion homes. The patient mostly withdrawn, keeps to self. Staff is noting that she is mostly in her room, depressed appearing, withdrawn, and more amenable to conversation. No longer fixated on being 44 years old, no longer fixated on being , stating "I'm not ," that was a mistake. Fair sleep. Sleeping most of the day. Staff having to prompt her. She is eating on her own volition, still unruly, irritable, upset. Discussed with staff at length. Nursing notes were reviewed. Spent time with the patient. Medications were reviewed. Labs were reviewed. Vitals were reviewed. No overt medication side effects. MENTAL STATUS EXAMINATION: Stated age, fair eye contact. Sleeping, but arousable. Limited historian, some ongoing delusions about owning mansions. ASSESSMENT: A 59-year-old female likely history of bipolar, possibly schizophrenia, ongoing grandiosities, delusions, but improvement noted, seems to be doing well with current dosing of medications including Lamictal, pending steady state. PLAN: We will continue inpatient monitoring. Difficult to control symptoms, but mild improvement noted. We will attempt to coordinate care with criminal justice social worker regarding safe discharge plan. JOB# [id number]
[2019-11-24] MEDS: Multivitamin Tab PO SCH (08:29)
--- NOTE | 2019-11-24 12:42 | Internal Medicine Prog Note ---
Internal Medicine Subjective - Subjective Patient seen and examined:: with staff, chart reviewed Patient is:: awake, verbal, interactive, in bed Per staff patient has:: no adverse event, no episodes of fall, tolerating meds Internal Medicine Objective - Physical Exam Vitals and I&O: Vital Signs Temp 97.5 F 11/24/19 06:16 Pulse 80 11/24/19 06:16 Resp 17 11/24/19 08:00 BP 96/62 11/24/19 06:16 Pulse Ox 96 11/24/19 06:16 Intake & Output 11/23/19 11/24/19 11/24/19 18:59 06:59 18:59 Intake Total 1100 360 Balance 1100 360 Intake: Oral 740 360 Other 360 Other: # Voids 3 1 # Bowel Movements 1 0 Active Medications: Current Medications Acetaminophen (Tylenol) 650 mg PO Q4H PRN PRN Reason: Pain (Mild 1-3) Stop: 01/07/20 12:08 Hydrocodone Bitart/Acetaminophen ([place] 5mg/325mg) 1 tab PO Q6H PRN PRN Reason: Pain (Severe 7-10) Stop: 01/07/20 12:46 Last Admin: 11/15/19 14:51 Dose: 1 tab Al Hydrox/Mg Hydrox/Simethicone (Maalox) 30 ml PO Q4HR PRN PRN Reason: GI DISTRESS Stop: 01/07/20 12:08 Aripiprazole (Abilify) 20 mg PO DAILY [facility]; Protocol Stop: 01/24/20 08:59 Aspirin (Ecotrin) 81 mg PO DAILY [facility] Stop: 01/08/20 08:59 Last Admin: 11/24/19 08:28 Dose: 81 mg Baclofen (Lioresal) 10 mg PO TID PRN PRN Reason: Pain (Moderate 4-6) Stop: 01/07/20 13:59 Last Admin: 11/08/19 22:37 Dose: 10 mg Clonazepam (Klonopin) 1 mg PO BID PRN; Protocol PRN Reason: Agitation Stop: 01/07/20 16:59 Last Admin: 11/20/19 09:41 Dose: 1 mg Divalproex Sodium (Depakote Dr) 500 mg PO BID [facility]; Protocol Stop: 01/07/20 16:59 Last Admin: 11/24/19 08:29 Dose: 500 mg Gabapentin (Neurontin) 300 mg PO BID [facility] Stop: 01/07/20 16:59 Last Admin: 11/24/19 08:29 Dose: 300 mg Ibuprofen (Motrin) 400 mg PO Q4H PRN PRN Reason: Pain (Severe 7-10) Stop: 01/07/20 12:08 Lamotrigine (Lamictal) 25 mg PO DAILY [facility]; Protocol Stop: 01/19/20 14:59 Last Admin: 11/24/19 08:29 Dose: 25 mg Lorazepam (Ativan) 0.5 mg PO Q4HR PRN; Protocol PRN Reason: Anxiety Stop: 12/08/19 12:08 Last Admin: 11/09/19 08:26 Dose: 0.5 mg Magnesium Hydroxide (Milk Of Magnesia) 30 ml PO HS PRN PRN Reason: Constipation Multivitamins/Vitamin C (Theragran) 1 tab PO DAILY [facility] Stop: 01/08/20 08:59 Last Admin: 11/24/19 08:29 Dose: 1 tab Trazodone HCl (Desyrel) 150 mg PO HS [facility]; Protocol Stop: 01/07/20 20:59 Last Admin: 11/23/19 20:37 Dose: 150 mg Zolpidem Tartrate (Ambien) 5 mg PO HS PRN PRN Reason: Insomnia Stop: 01/07/20 12:08 General: obese, appears older HEENT: NC/AT, PERRLA Neck: Supple, No JVD, No thyromegaly Lungs: CTAB Cardiovascular: RRR, Normal S1, Normal S2, without murmur Abdomen: soft, non-tender, globular, positive bowel sound Extremities: excoriation Neurological: no change Internal Medicine Assmt/Plan - Assessment Assessment: ASSESSMENT AND PLAN: Urinary tract infection, chronic obstructive pulmonary disease, osteoarthritis, degenerative joint disease, migraine headache, renal insufficiency, mild anemia, and obesity. - Plan Plan: PLAN: We will start the patient on p.o. antibiotic for a short duration. Continue on bronchodilator treatment on as needed basis. Continue with adequate pain control as well as Imitrex for headaches. We will monitor hemoglobin and hematocrit. The patient to be placed on fall precaution. Psychiatry to manage the patient for psych issues. meds renewed Nutritional Asmnt/Malnutr-PDOC - Dietary Evaluation Malnutrition Findings (Please click <Entered> for more info): Nutritional Asmnt/Malnutrition Start: 11/12/19 16: 37 Text: Status: Complete Freq: Protocol: Document 11/12/19 16:38 GORDON (Rec: 11/12/19 16:40 GORDON [email or web address] [id number]) Nutritional Asmnt/Malnutrition Patient General Information Nutritional Screening Moderate Risk Diagnosis Psychosis Pertinent Medical Hx/Surgical Hx COPD, Arthritis, Migraine Headaches Subjective Information Pt is a 57-year-old male admitted on 07/19 d/t psychosis with grandiosities. Pt is eating an estimated 56% of meals since admit date (x3 days) Per Meal/Nutrition Activity Record. Pt has noted refusal of some meals, nurse stated pt refused breakfast this morning and seems very depressed. Dietary is currently providing an estimated 1700 kcals and 100 gm Pro, per Pt PO intake this is providing an estimated 950 kcals and 56gm Pro to meet 86 % kcal and 100+% Pro needs- adequate. Visited pt today, asked how her appetite was .Pt would not speak, only nodded no when I asked if she was hungry and if I could get her something to eat. Will continue to monitor PO intake. Anthropometrics HT: 5 FT WT: 174 LB (79.09 kg) ABW: 119 LB (53.86 kg) BMI: 34.02 (Obese) GI/ Skin Integrity GI: WNL, Soft, Non-tender BM: 11/07 x3 I/O: 1040/Not Noted Skin: WNL, Intact Demetrio: 20 Diet Order: Cardiac, Chopped Estimated Energy Needs: ( Geriatric, ABW) 7594-5992 kcals (20-25 kcals/ kg) 40-55g Pro (0.8-1.0 g/kg) 4094-6359 ml (20-25 ml/kg) Current Diet Order/ Nutrition Support Cardiac, Chopped Pertinent Medications Maalox (PRN), Imodium (PRN), MOM (PRN), Theragran Pertinent Labs 11/06: Glucose 106, BUN/Cr 21/0 .67, Pro Time 12.4, INR 1.1 Nutritional Hx/Data Height 1.52 m Height (Calculated Centimeters) 152.4 Current Weight (lbs) 78.925 kg Weight (Calculated Kilograms) 78.9 Weight (Calculated Grams) 67286.1 [place] Body Weight 100 LB (45.45 kg) % [place] Body Weight 174 Body Mass Index (BMI) 34.0 Weight Status Obese GI Symptoms Last BM 11/07 x3 Skin Integrity/Comment: Skin: WNL, Intact Demetrio: 20 Estimated Nutritional Goals BEE in Kcals: Adj wt of IBW Calories/Kcals/Kg 20-25 Kcals Calculated 4199-7537 Protein: Adj wt of IBW Protein g/k.8-1.0 Protein Calculated 40-55 Fluid: ml 0485-2762 ml (20-25 ml/kg) Nutritional Problem 1. Problem Problem Obesity Etiology r/t consistent energy overconsumption Signs/Symptoms: aeb BMI <30 (34.02). Malnutrition Related to Morbid Obesity Malnutrition related to morbid obesity No Intervention/Recommendation Comments Continue Cardiac, Chopped diet as tolerated. Expected Outcomes/Goals Expected Outcomes/Goals 1.PO intake meet 75% of estimated nutritional needs. 2.Monitor PO intake, wt, nutrition related labs, and skin integrity. 3.F/U as moderate risk in 3-5 days, 11/14-11/16.
--- NOTE | 2019-11-24 13:29 | Progress Notes ---
DATE: 11/24/2019 SUBJECTIVE: The patient is in the hospital, seems to be improving, spent some time speaking with her, she is a lot calmer, more cooperative, wants to go home, stating that she misses being in her f[facility], wants to go back to her fdc, no longer believing that she is , no longer believing that she is a ____ years old, seems to be tolerant of medications, tolerant of the Abilify for example, still with some residual delusions, believing that she is a millionaire and has a mansion, but generally improved and okay, staff noting she is friendly, less depressed appearing, less withdrawn, eating on her own volition, sleeping well. Medications were reviewed. Labs were reviewed. Vitals were reviewed. No overt medication side effects, good tolerability to all the medications. No EPS, no akathisia. Per staff, getting along well with others. Blood pressure 87/53, ranges 96/62, pulse ranges from 75-80. MENTAL STATUS EXAMINATION: Stated age, fair eye contact. Speech within normal limits. Mood "better." Affect flat. Thought processes were more linear. No SI, no HI. Mild delusion is noted. Better insight. ASSESSMENT: A 59-year-old female, currently in the hospital, improvement noted. Delusions dissipating, calmer, less depressed appearing. PLAN: We will continue inpatient monitoring, spent some time speaking with the patient in regards to the content of any delusions. We will err on the side of caution, monitor for further 24 hours. Prepare for disposition tomorrow. JOB# [id number]
[2019-11-25] MEDS: Multivitamin Tab PO SCH (08:14)
--- NOTE | 2019-11-25 12:36 | Internal Medicine Prog Note ---
Internal Medicine Subjective - Subjective Patient seen and examined:: with staff, chart reviewed Patient is:: awake, verbal, interactive, in bed Per staff patient has:: no adverse event, no episodes of fall, tolerating meds Internal Medicine Objective - Physical Exam Vitals and I&O: Vital Signs Temp 97.8 F 11/24/19 14:00 Pulse 77 11/24/19 14:00 Resp 18 11/25/19 07:55 BP 85/53 11/24/19 14:00 Pulse Ox 97 11/24/19 14:00 Intake & Output 11/24/19 11/25/19 11/25/19 18:59 06:59 18:59 Intake Total 1200 240 Balance 1200 240 Intake: Oral 1200 240 Other: # Voids 4 2 # Bowel Movements 1 0 Active Medications: Current Medications Acetaminophen (Tylenol) 650 mg PO Q4H PRN PRN Reason: Pain (Mild 1-3) Stop: 01/07/20 12:08 Hydrocodone Bitart/Acetaminophen ([place] 5mg/325mg) 1 tab PO Q6H PRN PRN Reason: Pain (Severe 7-10) Stop: 01/07/20 12:46 Last Admin: 11/15/19 14:51 Dose: 1 tab Al Hydrox/Mg Hydrox/Simethicone (Maalox) 30 ml PO Q4HR PRN PRN Reason: GI DISTRESS Stop: 01/07/20 12:08 Aripiprazole (Abilify) 20 mg PO DAILY [facility]; Protocol Stop: 01/24/20 08:59 Last Admin: 11/25/19 08:14 Dose: 20 mg Aspirin (Ecotrin) 81 mg PO DAILY [facility] Stop: 01/08/20 08:59 Last Admin: 11/25/19 08:14 Dose: 81 mg Baclofen (Lioresal) 10 mg PO TID PRN PRN Reason: Pain (Moderate 4-6) Stop: 01/07/20 13:59 Last Admin: 11/08/19 22:37 Dose: 10 mg Clonazepam (Klonopin) 1 mg PO BID PRN; Protocol PRN Reason: Agitation Stop: 01/07/20 16:59 Last Admin: 11/20/19 09:41 Dose: 1 mg Divalproex Sodium (Depakote Dr) 500 mg PO BID [facility]; Protocol Stop: 01/07/20 16:59 Last Admin: 04/29/20 08:14 Dose: 500 mg Gabapentin (Neurontin) 300 mg PO BID [facility] Stop: 01/07/20 16:59 Last Admin: 11/25/19 08:14 Dose: 300 mg Ibuprofen (Motrin) 400 mg PO Q4H PRN PRN Reason: Pain (Severe 7-10) Stop: 01/07/20 12:08 Lamotrigine (Lamictal) 25 mg PO DAILY [facility]; Protocol Stop: 01/19/20 14:59 Last Admin: 11/25/19 08:14 Dose: 25 mg Lorazepam (Ativan) 0.5 mg PO Q4HR PRN; Protocol PRN Reason: Anxiety Stop: 12/08/19 12:08 Last Admin: 11/09/19 08:26 Dose: 0.5 mg Magnesium Hydroxide (Milk Of Magnesia) 30 ml PO HS PRN PRN Reason: Constipation Multivitamins/Vitamin C (Theragran) 1 tab PO DAILY [facility] Stop: 01/08/20 08:59 Last Admin: 11/25/19 08:14 Dose: 1 tab Trazodone HCl (Desyrel) 150 mg PO HS [facility]; Protocol Stop: 01/07/20 20:59 Last Admin: 11/24/19 20:39 Dose: 150 mg Zolpidem Tartrate (Ambien) 5 mg PO HS PRN PRN Reason: Insomnia Stop: 01/07/20 12:08 General: obese, appears older HEENT: NC/AT, PERRLA Neck: Supple, No JVD, No thyromegaly Lungs: CTAB Cardiovascular: RRR, Normal S1, Normal S2, without murmur Abdomen: soft, non-tender, globular, positive bowel sound Extremities: excoriation Neurological: no change Internal Medicine Assmt/Plan - Assessment Assessment: ASSESSMENT AND PLAN: Urinary tract infection, chronic obstructive pulmonary disease, osteoarthritis, degenerative joint disease, migraine headache, renal insufficiency, mild anemia, and obesity. - Plan Plan: PLAN: We will start the patient on p.o. antibiotic for a short duration. Continue on bronchodilator treatment on as needed basis. Continue with adequate pain control as well as Imitrex for headaches. We will monitor hemoglobin and hematocrit. The patient to be placed on fall precaution. Psychiatry to manage the patient for psych issues. meds renewed Nutritional Asmnt/Malnutr-PDOC - Dietary Evaluation Malnutrition Findings (Please click <Entered> for more info): Nutritional Asmnt/Malnutrition Start: 11/12/19 16: 37 Text: Status: Complete Freq: Protocol: Document 11/12/19 16:38 GORDON (Rec: 11/12/19 16:40 GORDON [id number]) Nutritional Asmnt/Malnutrition Patient General Information Nutritional Screening Moderate Risk Diagnosis Psychosis Pertinent Medical Hx/Surgical Hx COPD, Arthritis, Migraine Headaches Subjective Information Pt is a 57-year-old male admitted on 07/19 d/t psychosis with grandiosities. Pt is eating an estimated 56% of meals since admit date (x3 days) Per Meal/Nutrition Activity Record. Pt has noted refusal of some meals, nurse stated pt refused breakfast this morning and seems very depressed. Dietary is currently providing an estimated 1700 kcals and 100 gm Pro, per Pt PO intake this is providing an estimated 950 kcals and 56gm Pro to meet 86 % kcal and 100+% Pro needs- adequate. Visited pt today, asked how her appetite was .Pt would not speak, only nodded no when I asked if she was hungry and if I could get her something to eat. Will continue to monitor PO intake. Anthropometrics HT: 5 FT WT: 174 LB (79.09 kg) ABW: 119 LB (53.86 kg) BMI: 34.02 (Obese) GI/ Skin Integrity GI: WNL, Soft, Non-tender BM: 11/07 x3 I/O: 1040/Not Noted Skin: WNL, Intact Demetrio: 20 Diet Order: Cardiac, Chopped Estimated Energy Needs: ( Geriatric, ABW) 2010-5478 kcals (20-25 kcals/ kg) 40-55g Pro (0.8-1.0 g/kg) 3129-7749 ml (20-25 ml/kg) Current Diet Order/ Nutrition Support Cardiac, Chopped Pertinent Medications Maalox (PRN), Imodium (PRN), MOM (PRN), Theragran Pertinent Labs 11/06: Glucose 106, BUN/Cr 21/0 .67, Pro Time 12.4, INR 1.1 Nutritional Hx/Data Height 1.52 m Height (Calculated Centimeters) 152.4 Current Weight (lbs) 78.925 kg Weight (Calculated Kilograms) 78.9 Weight (Calculated Grams) 93267.1 [place] Body Weight 100 LB (45.45 kg) % [place] Body Weight 174 Body Mass Index (BMI) 34.0 Weight Status Obese GI Symptoms Last BM 11/07 x3 Skin Integrity/Comment: Skin: WNL, Intact Demetrio: 20 Estimated Nutritional Goals BEE in Kcals: Adj wt of IBW Calories/Kcals/Kg 20-25 Kcals Calculated 7133-4138 Protein: Adj wt of IBW Protein g/k.8-1.0 Protein Calculated 40-55 Fluid: ml 8431-9981 ml (20-25 ml/kg) Nutritional Problem 1. Problem Problem Obesity Etiology r/t consistent energy overconsumption Signs/Symptoms: aeb BMI <30 (34.02). Malnutrition Related to Morbid Obesity Malnutrition related to morbid obesity No Intervention/Recommendation Comments Continue Cardiac, Chopped diet as tolerated. Expected Outcomes/Goals Expected Outcomes/Goals 1.PO intake meet 75% of estimated nutritional needs. 2.Monitor PO intake, wt, nutrition related labs, and skin integrity. 3.F/U as moderate risk in 3-5 days, 11/14-11/16.
[2019-11-25] MEDS: Hydrocodone/APAP 5mg/325mg Tab PO PRN (20:54)
--- NOTE | 2019-11-25 22:04 | Discharge Summary ---
DATE OF DISCHARGE: 11/25/2019 HISTORY OF PRESENT ILLNESS: A 59-year-old female, currently in the hospital, decompensating, more intense mood swings, manic appearing, psychotic, believing that she was , believing that she was 44 years old, believing that she had mansion homes, was getting more agitated and paranoid, could not be cared for at a lower level of care. When she came to the hospital psychotic symptoms persisted. PAST PSYCHIATRIC HISTORY: Likely bipolar, possibly schizophrenia versus schizoaffective. FAMILY HISTORY: Unclear. SOCIAL HISTORY: The patient states that she is coming from a long term, but rather the patient stating that she is coming from a custodial, but she actually has a mansion house and millions of dollars as what she tells me. MEDICATIONS: Medications were noted. DIAGNOSIS: Likely bipolar, rule out schizoaffective versus schizophrenia. MEDICAL: Please see full H and P. HOSPITAL COURSE: After initial assessment, the patient was initiated on medications. Medications were adjusted and titrated including Lamictal because the patient did become pretty depressed during the course of her hospital stay, coming down from what appeared to be a manic episode as the hospital course progressed, her psychotic symptoms dissipated, decreased. No longer believing she was , better reality testing about her age, depression alleviated. She was more engaged, oriented x 4, calm. Staff noting improvement. Normalization of sleep and appetite. CONDITION UPON DISCHARGE: Improved, better ADLs, more engaged, awake, better reality testing linear. No SI, no HI, no psychosis. Better insight. DIAGNOSES: Bipolar, rule out schizoaffective. PROGNOSIS: The patient follows up with outpatient mental health services and remains compliant with treatment. Prognosis will improve, otherwise guarded. JOB# [id number]
[2019-11-26] MEDS: Multivitamin Tab PO SCH (08:37)
--- NOTE | 2019-11-26 12:37 | Internal Medicine Prog Note ---
Internal Medicine Subjective - Subjective Patient seen and examined:: with staff, chart reviewed Patient is:: awake, verbal, interactive, in bed Per staff patient has:: no adverse event, no episodes of fall, tolerating meds Internal Medicine Objective - Physical Exam Vitals and I&O: Vital Signs Temp 97.3 F 11/26/19 05:54 Pulse 68 11/26/19 05:54 Resp 20 11/26/19 05:54 BP 116/72 11/26/19 05:54 Pulse Ox 98 11/26/19 05:54 Intake & Output 11/25/19 11/26/19 11/26/19 18:59 06:59 18:59 Intake Total 900 120 Balance 900 120 Intake: Oral 900 120 Other: # Voids 3 2 # Bowel Movements 1 0 Active Medications: Current Medications Acetaminophen (Tylenol) 650 mg PO Q4H PRN PRN Reason: Pain (Mild 1-3) Stop: 01/07/20 12:08 Hydrocodone Bitart/Acetaminophen ([place] 5mg/325mg) 1 tab PO Q6H PRN PRN Reason: Pain (Severe 7-10) Stop: 01/07/20 12:46 Last Admin: 11/25/19 20:54 Dose: 1 tab Al Hydrox/Mg Hydrox/Simethicone (Maalox) 30 ml PO Q4HR PRN PRN Reason: GI DISTRESS Stop: 01/07/20 12:08 Aripiprazole (Abilify) 20 mg PO DAILY [facility]; Protocol Stop: 01/24/20 08:59 Last Admin: 11/26/19 08:37 Dose: 20 mg Aspirin (Ecotrin) 81 mg PO DAILY [facility] Stop: 01/08/20 08:59 Last Admin: 11/26/19 08:37 Dose: 81 mg Baclofen (Lioresal) 10 mg PO TID PRN PRN Reason: Pain (Moderate 4-6) Stop: 01/07/20 13:59 Last Admin: 11/08/19 22:37 Dose: 10 mg Clonazepam (Klonopin) 1 mg PO BID PRN; Protocol PRN Reason: Agitation Stop: 01/07/20 16:59 Last Admin: 11/20/19 09:41 Dose: 1 mg Divalproex Sodium (Depakote Dr) 500 mg PO BID [facility]; Protocol Stop: 01/07/20 16:59 Last Admin: 04/30/20 08:37 Dose: 500 mg Gabapentin (Neurontin) 300 mg PO BID [facility] Stop: 01/07/20 16:59 Last Admin: 11/26/19 08:36 Dose: 300 mg Ibuprofen (Motrin) 400 mg PO Q4H PRN PRN Reason: Pain (Severe 7-10) Stop: 01/07/20 12:08 Lamotrigine (Lamictal) 25 mg PO DAILY [facility]; Protocol Stop: 01/19/20 14:59 Last Admin: 11/26/19 08:37 Dose: 25 mg Lorazepam (Ativan) 0.5 mg PO Q4HR PRN; Protocol PRN Reason: Anxiety Stop: 12/08/19 12:08 Last Admin: 11/09/19 08:26 Dose: 0.5 mg Magnesium Hydroxide (Milk Of Magnesia) 30 ml PO HS PRN PRN Reason: Constipation Multivitamins/Vitamin C (Theragran) 1 tab PO DAILY [facility] Stop: 01/08/20 08:59 Last Admin: 11/26/19 08:37 Dose: 1 tab Trazodone HCl (Desyrel) 150 mg PO HS [facility]; Protocol Stop: 01/07/20 20:59 Last Admin: 11/25/19 20:54 Dose: 150 mg Zolpidem Tartrate (Ambien) 5 mg PO HS PRN PRN Reason: Insomnia Stop: 01/07/20 12:08 General: obese, appears older HEENT: NC/AT, PERRLA Neck: Supple, No JVD, No thyromegaly Lungs: CTAB Cardiovascular: RRR, Normal S1, Normal S2, without murmur Abdomen: soft, non-tender, globular, positive bowel sound Extremities: excoriation Neurological: no change Internal Medicine Assmt/Plan - Assessment Assessment: ASSESSMENT AND PLAN: Urinary tract infection, chronic obstructive pulmonary disease, osteoarthritis, degenerative joint disease, migraine headache, renal insufficiency, mild anemia, and obesity. - Plan Plan: PLAN: We will start the patient on p.o. antibiotic for a short duration. Continue on bronchodilator treatment on as needed basis. Continue with adequate pain control as well as Imitrex for headaches. We will monitor hemoglobin and hematocrit. The patient to be placed on fall precaution. Psychiatry to manage the patient for psych issues. meds renewed Nutritional Asmnt/Malnutr-PDOC - Dietary Evaluation Malnutrition Findings (Please click <Entered> for more info): Nutritional Asmnt/Malnutrition Start: 11/12/19 16: 37 Text: Status: Complete Freq: Protocol: Document 11/12/19 16:38 GORDON (Rec: 11/12/19 16:40 GORDON [email or web address] [id number]) Nutritional Asmnt/Malnutrition Patient General Information Nutritional Screening Moderate Risk Diagnosis Psychosis Pertinent Medical Hx/Surgical Hx COPD, Arthritis, Migraine Headaches Subjective Information Pt is a 57-year-old male admitted on 07/19 d/t psychosis with grandiosities. Pt is eating an estimated 56% of meals since admit date (x3 days) Per Meal/Nutrition Activity Record. Pt has noted refusal of some meals, nurse stated pt refused breakfast this morning and seems very depressed. Dietary is currently providing an estimated 1700 kcals and 100 gm Pro, per Pt PO intake this is providing an estimated 950 kcals and 56gm Pro to meet 86 % kcal and 100+% Pro needs- adequate. Visited pt today, asked how her appetite was .Pt would not speak, only nodded no when I asked if she was hungry and if I could get her something to eat. Will continue to monitor PO intake. Anthropometrics HT: 5 FT WT: 174 LB (79.09 kg) ABW: 119 LB (53.86 kg) BMI: 34.02 (Obese) GI/ Skin Integrity GI: WNL, Soft, Non-tender BM: 11/07 x3 I/O: 1040/Not Noted Skin: WNL, Intact Demetrio: 20 Diet Order: Cardiac, Chopped Estimated Energy Needs: ( Geriatric, ABW) 0431-3651 kcals (20-25 kcals/ kg) 40-55g Pro (0.8-1.0 g/kg) 3930-1543 ml (20-25 ml/kg) Current Diet Order/ Nutrition Support Cardiac, Chopped Pertinent Medications Maalox (PRN), Imodium (PRN), MOM (PRN), Theragran Pertinent Labs 11/06: Glucose 106, BUN/Cr 21/0 .67, Pro Time 12.4, INR 1.1 Nutritional Hx/Data Height 1.52 m Height (Calculated Centimeters) 152.4 Current Weight (lbs) 78.925 kg Weight (Calculated Kilograms) 78.9 Weight (Calculated Grams) 18525.1 [place] Body Weight 100 LB (45.45 kg) % [place] Body Weight 174 Body Mass Index (BMI) 34.0 Weight Status Obese GI Symptoms Last BM 11/07 x3 Skin Integrity/Comment: Skin: WNL, Intact Demetrio: 20 Estimated Nutritional Goals BEE in Kcals: Adj wt of IBW Calories/Kcals/Kg 20-25 Kcals Calculated 1263-4633 Protein: Adj wt of IBW Protein g/k.8-1.0 Protein Calculated 40-55 Fluid: ml 1345-1198 ml (20-25 ml/kg) Nutritional Problem 1. Problem Problem Obesity Etiology r/t consistent energy overconsumption Signs/Symptoms: aeb BMI <30 (34.02). Malnutrition Related to Morbid Obesity Malnutrition related to morbid obesity No Intervention/Recommendation Comments Continue Cardiac, Chopped diet as tolerated. Expected Outcomes/Goals Expected Outcomes/Goals 1.PO intake meet 75% of estimated nutritional needs. 2.Monitor PO intake, wt, nutrition related labs, and skin integrity. 3.F/U as moderate risk in 3-5 days, 11/14-11/16.
--- NOTE | 2019-11-26 19:11 | Progress Notes ---
DATE: 11/26/2019 SUBJECTIVE: The patient was seen today, likely at her baseline, calm, generally cooperative. No SI, no HI, no intent, no plan. No current thoughts that she is , still believing that she is a millionaire, but amenable to going to a [facility] or a correction. Some delays in her discharge. We are awaiting placement, possibly COVID-19 testing. We will attempt to discharge today. JOB# [id number]
== END 2019-11-26 16:45 | DRG 885 ==
LOC: GERO 11:30
PROVIDERS: ADMIT Psychiatry & Neurology Psychiatry; ATTEND Psychiatry & Neurology Psychiatry
DX: F20.9 Schizophrenia, unspecified (principal); N39.0 Urinary tract infection, site not specified; F31.9 Bipolar disorder, unspecified; I10 Essential (primary) hypertension; E78.5 Hyperlipidemia, unspecified; J44.9 Chronic obstructive pulmonary disease, unspecified; M19.90 Unspecified osteoarthritis, unspecified site; G43.909 Migraine, unspecified, not intractable, without status migrainosus; F17.200 Nicotine dependence, unspecified, uncomplicated; E66.9 Obesity, unspecified; D64.9 Anemia, unspecified; M51.36 Other intervertebral disc degeneration, lumbar region; Z68.34 Body mass index [BMI] 34.0-34.9, adult; Z79.899 Other long term (current) drug therapy
CPT/HCPCS: 83036-90; Z7610